=== PATIENT | male | born 1975 | race Two or more races ===

== ENCOUNTER 2020-05-14 09:18 | Outpatient (REF) | payer OTHER, SELFPAY ==
[2020-05-14 11:27] LABS: Hemoglobin 14.4 g/dl (14.0-18.0); INTERNATIONAL NORM RATIO 0.9 (0.9-1.1); Prothrombin Time 10.8 SEC (10.8-13.0)
[2020-05-14 11:29] LABS: Hematocrit 43.1 % (42-52); Mean Corpuscular HGB Conc 33.4 g/dl (31.0-36.0); Mean Corpuscular Hemoglobin 29.3 pg (27.0-33.0); Mean Corpuscular Volume 87.6 fL (80-98); Red Blood Count 4.92 X10*6/uL (4.60-5.80); White Blood Count 7.6 X10*3/uL (4.8-10.8)
[2020-05-14 11:43] LABS: PLT ABN DIST 1
[2020-05-14 12:02] LABS: Platelet Count 194 X10*3/uL (160-400)
[2020-05-14 12:48] LABS: Alanine Aminotransferase 105 U/L (0-40); Albumin Level 4.5 g/dL (3.5-5.0); Alkaline Phosphatase 85 U/L (39-117); Aspartate Amino Transferase 34 U/L (5-37); Bilirubin Direct 0.2 mg/dL (0.0-0.5); Bilirubin Total 0.5 mg/dL (0.0-1.0)
== END 2020-05-14 09:19 | disposition home or self-care (01) ==
LOC: HO.LAB 09:18
PROVIDERS: PCP Internal Medicine; Visit Provider Internal Medicine Gastroenterology
DX: R79.89 Other specified abnormal findings of blood chemistry (principal)
CPT/HCPCS: 36415; 80076; 85027; 85610

== ENCOUNTER → 2020-05-23 13:28 | Outpatient (BNVA) | payer OTHER, SELFPAY | PROVIDERS: PCP Internal Medicine; Visit Provider Nurse Practitioner Gerontology | DX: E11.65 Type 2 diabetes mellitus with hyperglycemia (principal); E78.1 Pure hyperglyceridemia; E55.9 Vitamin D deficiency, unspecified | CPT/HCPCS: 82947; 99212 ==

== ENCOUNTER 2020-06-03 08:37 | Outpatient (REF) | payer OTHER, SELFPAY ==
[2020-06-03 09:55] LABS: Cholesterol 334 mg/dL; HDL Cholesterol 30 mg/dL; Triglycerides 892 mg/dL
[2020-06-03 10:18] LABS: Vitamin D 25-OH Total 46.4 ng/mL (>30)
[2020-06-04 08:07] LABS: LDL Cholesterol Direct 78 mg/dL (<100)
== END 2020-06-03 08:38 | disposition home or self-care (01) ==
LOC: HO.LAB 08:37
PROVIDERS: PCP Internal Medicine; Visit Provider Nurse Practitioner Gerontology
DX: E11.65 Type 2 diabetes mellitus with hyperglycemia (principal); E55.9 Vitamin D deficiency, unspecified; E78.49 Other hyperlipidemia
CPT/HCPCS: 80061; 82306; 83721

== ENCOUNTER → 2020-06-20 10:59 | Outpatient (BNVA) | payer OTHER, SELFPAY | PROVIDERS: PCP Internal Medicine; Referring Provider Internal Medicine; Visit Provider Internal Medicine Cardiovascular Disease | DX: E78.49 Other hyperlipidemia (principal); E11.65 Type 2 diabetes mellitus with hyperglycemia; R07.9 Chest pain, unspecified | CPT/HCPCS: 93005; 99202 ==

== ENCOUNTER → 2020-06-26 07:51 | Outpatient (REF) | payer OTHER, SELFPAY ==
--- NOTE | 2020-06-26 07:54 | CA_ITS ---
Acquisition Time: 2020-06-26 08:10:33 Total Exercise Time: 00:06:53 Test Indications: Chest Pain Medications: SEE CHART Protocol: ROMAIN Max HR: 162 BPM 91% of Pred: 177 BPM Max BP: 154/082 mmHG Max Work Load: 8.3 METS Exercise stress test using Romain protocol, total of 6 min 53 sec. METS 8.3, MHR up to 162, MAPHR up to 91%. Tolerated well, denies any anginal sx. EKG with occ. PVC's no ischemic changes during exercise or in recovery. Normotensive response to exercise. Test reviewed with Merlin Billings Referred By: Nishant Garcia Overread By: Albert Small
== END ==
LOC: HO.CARD 07:51
PROVIDERS: PCP Internal Medicine; Visit Provider Internal Medicine Cardiovascular Disease
DX: E78.49 Other hyperlipidemia (principal); R07.9 Chest pain, unspecified
CPT/HCPCS: 93017

== ENCOUNTER 2020-07-08 08:31 | Outpatient (REF) | payer OTHER, SELFPAY ==
[2020-07-08 09:46] LABS: Alanine Aminotransferase 146 U/L (0-40); Albumin Level 4.4 g/dL (3.5-5.0); Alkaline Phosphatase 86 U/L (39-117); Anion Gap 11 (12-20); Aspartate Amino Transferase 52 U/L (5-37); Bilirubin Total 0.3 mg/dL (0.0-1.0); Blood Urea Nitrogen 11 mg/dL (9-16); Calcium 9.4 mg/dL (8.4-10.2); Carbon Dioxide 27 mmol/L (22-29); Chloride 103 mmol/L (96-108); Cholesterol 218 mg/dL; Estimated Glomerular Filt Rate > 60; Glucose Fasting 178 mg/dL (60-99); HDL Cholesterol 34 mg/dL; Potassium 4.3 mmol/l (3.3-5.1); Sodium 137 mmol/L (135-145); Triglycerides 518 mg/dL
[2020-07-09 07:27] LABS: LDL Cholesterol Direct 94 mg/dL (<100)
== END 2020-07-08 08:32 | disposition home or self-care (01) ==
LOC: HO.LAB 08:31
PROVIDERS: Absent Provider Nurse Practitioner Gerontology; PCP Internal Medicine; Visit Provider Internal Medicine Cardiovascular Disease
DX: E11.65 Type 2 diabetes mellitus with hyperglycemia (principal); E78.49 Other hyperlipidemia; E78.1 Pure hyperglyceridemia
CPT/HCPCS: 80053; 80061; 83721

== ENCOUNTER → 2020-07-25 13:27 | Outpatient (BNVA) | payer OTHER, SELFPAY | PROVIDERS: PCP Internal Medicine; Visit Provider Internal Medicine Gastroenterology | DX: Z76.89 Persons encountering health services in other specified circumstances (principal) ==

== ENCOUNTER → 2020-08-28 11:31 | Outpatient (BNVA) | payer OTHER, SELFPAY | PROVIDERS: PCP Internal Medicine; Referring Provider Internal Medicine; Visit Provider Nurse Practitioner Gerontology ==

== ENCOUNTER 2020-09-12 10:46 | Outpatient (REF) | payer OTHER, SELFPAY ==
[2020-09-12 12:31] LABS: Alanine Aminotransferase 59 U/L (0-40); Albumin Level 4.8 g/dL (3.5-5.0); Alkaline Phosphatase 69 U/L (39-117); Anion Gap 11 (12-20); Aspartate Amino Transferase 25 U/L (5-37); Bilirubin Total 0.4 mg/dL (0.0-1.0); Blood Urea Nitrogen 13 mg/dL (9-16); Calcium 9.9 mg/dL (8.4-10.2); Carbon Dioxide 28 mmol/L (22-29); Chloride 105 mmol/L (96-108); Estimated Glomerular Filt Rate > 60; Glucose Fasting 146 mg/dL (60-99); Potassium 4.4 mmol/L (3.3-5.1); Sodium 140 mmol/L (135-145); Total Protein 7.2 g/dL (6.5-8.0)
[2020-09-16 08:46] LABS: Levetiracetam Keppra 4.6 mcg/mL (12.0-46.0)
[2020-09-18 06:38] LABS: Vitamin D 25-OH, D2 <4 ng/mL; Vitamin D 25-OH, D3 56 ng/mL; Vitamin D 25-OH, Total 56 ng/mL (30-100)
== END 2020-09-12 10:47 | disposition home or self-care (01) ==
LOC: HO.LAB 10:46
PROVIDERS: PCP Internal Medicine; Visit Provider Internal Medicine
DX: E55.9 Vitamin D deficiency, unspecified (principal); R56.9 Unspecified convulsions; E11.65 Type 2 diabetes mellitus with hyperglycemia
CPT/HCPCS: 36415; 80053; 80177; 82306

== ENCOUNTER → 2020-11-25 13:43 | Outpatient (BNVA) | payer OTHER, SELFPAY | PROVIDERS: PCP Internal Medicine; Visit Provider Nurse Practitioner Gerontology | DX: E11.65 Type 2 diabetes mellitus with hyperglycemia (principal); E78.1 Pure hyperglyceridemia; E55.9 Vitamin D deficiency, unspecified | CPT/HCPCS: 82947 ==

== ENCOUNTER 2021-02-24 13:36 | Outpatient (REF) | payer OTHER, SELFPAY ==
[2021-02-24 14:32] LABS: Estimated Average Glucose 120 mg/dL; Hemoglobin A1C 151.2234 umol/L; Hemoglobin A1c % 5.8 %
[2021-02-24 14:48] LABS: Creatinine Urine 202.85 mg/dL; Microalbum/Creatinine Ratio Ur 7.8 ug/mg cr
[2021-02-24 14:50] LABS: Alanine Aminotransferase 44 U/L (0-40); Albumin Level 4.8 g/dL (3.5-5.0); Alkaline Phosphatase 81 U/L (39-117); Anion Gap 14 (12-20); Aspartate Amino Transferase 31 U/L (5-37); Bilirubin Total 0.6 mg/dL (0.0-1.0); Blood Urea Nitrogen 12 mg/dL (9-16); Calcium 9.7 mg/dL (8.4-10.2); Carbon Dioxide 28 mmol/L (22-29); Chloride 106 mmol/L (96-108); Cholesterol 219 mg/dL; Estimated Glomerular Filt Rate > 60; Glucose Fasting 100 mg/dL (60-99); HDL Cholesterol 32 mg/dL; Potassium 4.5 mmol/L (3.3-5.1); Sodium 143 mmol/L (135-145); Total Protein 7.3 g/dL (6.5-8.0); Triglycerides 479 mg/dL
[2021-02-25 16:51] LABS: LDL Cholesterol Direct 70 mg/dL (<100)
[2021-03-01 14:46] LABS: Vitamin D 25-OH, D2 <4 ng/mL; Vitamin D 25-OH, D3 57 ng/mL; Vitamin D 25-OH, Total 57 ng/mL (30-100)
== END 2021-02-24 13:37 | disposition home or self-care (01) ==
LOC: HO.LAB 13:36
PROVIDERS: Absent Provider Nurse Practitioner Gerontology; PCP Internal Medicine; Visit Provider Internal Medicine
DX: E11.65 Type 2 diabetes mellitus with hyperglycemia (principal); E78.5 Hyperlipidemia, unspecified; E55.9 Vitamin D deficiency, unspecified
CPT/HCPCS: 36415; 80053; 80061; 82043; 82306; 83036; 83721

== ENCOUNTER → 2021-04-03 10:39 | Outpatient (BNVA) | payer OTHER, SELFPAY | PROVIDERS: PCP Internal Medicine; Visit Provider Internal Medicine Gastroenterology ==

== ENCOUNTER 2021-06-18 08:12 | Outpatient (REF) | payer OTHER, SELFPAY ==
[2021-06-18 09:35] LABS: Alanine Aminotransferase 70 U/L (0-40); Albumin Level 4.2 g/dL (3.5-5.0); Alkaline Phosphatase 73 U/L (39-117); Anion Gap 16 (12-20); Aspartate Amino Transferase 29 U/L (5-37); Bilirubin Total 0.5 mg/dL (0.0-1.0); Blood Urea Nitrogen 13 mg/dL (9-16); Calcium 9.9 mg/dL (8.4-10.2); Carbon Dioxide 25 mmol/L (22-29); Chloride 104 mmol/L (96-108); Cholesterol 248 mg/dL; Estimated Glomerular Filt Rate > 60; Glucose Fasting 123 mg/dL (60-99); HDL Cholesterol 34 mg/dL; Potassium 4.4 mmol/L (3.3-5.1); Sodium 141 mmol/L (135-145); Total Protein 6.7 g/dL (6.5-8.0); Triglycerides 609 mg/dL
[2021-06-18 09:49] LABS: Creatinine Urine 168.79 mg/dL; Microalbum/Creatinine Ratio Ur 4.7 ug/mg cr
== END 2021-06-18 08:13 | disposition home or self-care (01) ==
LOC: HO.LAB 08:12
PROVIDERS: Nurse Practitioner Gerontology; PCP Internal Medicine; Visit Provider Internal Medicine
DX: K76.0 Fatty (change of) liver, not elsewhere classified (principal); E11.65 Type 2 diabetes mellitus with hyperglycemia
CPT/HCPCS: 36415; 80053; 80061; 82043

== ENCOUNTER → 2021-07-16 09:51 | Outpatient (BNVA) | payer OTHER, SELFPAY | PROVIDERS: PCP Internal Medicine; Visit Provider Nurse Practitioner Gerontology ==

== ENCOUNTER 2021-09-10 09:21 | Outpatient (REF) | payer OTHER, SELFPAY ==
[2021-09-10 10:55] LABS: Alanine Aminotransferase 29 U/L (0-40); Albumin Level 4.5 g/dL (3.5-5.0); Alkaline Phosphatase 72 U/L (39-117); Anion Gap 13 (12-20); Aspartate Amino Transferase 22 U/L (5-37); Bilirubin Total 0.6 mg/dL (0.0-1.0); Blood Urea Nitrogen 19 mg/dL (9-16); Carbon Dioxide 27 mmol/L (22-29); Chloride 107 mmol/L (96-108); Cholesterol 231 mg/dL; Estimated Glomerular Filt Rate > 60; Glucose Fasting 123 mg/dL (60-99); HDL Cholesterol 44 mg/dL; LDL Cholesterol Calculated 144 mg/dl; Potassium 4.3 mmol/L (3.3-5.1); Sodium 143 mmol/L (135-145); Total Protein 7.1 g/dL (6.5-8.0); Triglycerides 216 mg/dL
[2021-09-10 12:05] LABS: Creatinine Urine 160.25 mg/dL; Microalbum/Creatinine Ratio Ur 3.7 ug/mg cr
[2021-09-14 15:17] LABS: Vitamin D 25-OH, D2 <4 ng/mL; Vitamin D 25-OH, D3 40 ng/mL; Vitamin D 25-OH, Total 40 ng/mL (30-100)
== END 2021-09-10 09:22 | disposition home or self-care (01) ==
LOC: HO.LAB 09:21
PROVIDERS: PCP Internal Medicine; Visit Provider Internal Medicine
DX: E11.65 Type 2 diabetes mellitus with hyperglycemia (principal); R56.9 Unspecified convulsions; E78.5 Hyperlipidemia, unspecified; E55.9 Vitamin D deficiency, unspecified; Z79.899 Other long term (current) drug therapy
CPT/HCPCS: 36415; 80053; 80061; 80177; 82043; 82306

== ENCOUNTER → 2021-10-02 10:14 | Outpatient (BNVA) | payer OTHER, SELFPAY | PROVIDERS: PCP Internal Medicine; Referring Provider Internal Medicine; Visit Provider Internal Medicine Gastroenterology | DX: I10 Essential (primary) hypertension (principal); E78.1 Pure hyperglyceridemia; E78.5 Hyperlipidemia, unspecified; E78.49 Other hyperlipidemia; E11.65 Type 2 diabetes mellitus with hyperglycemia; R07.9 Chest pain, unspecified; K21.9 Gastro-esophageal reflux disease without esophagitis; K76.0 Fatty (change of) liver, not elsewhere classified; R79.89 Other specified abnormal findings of blood chemistry; Z79.899 Other long term (current) drug therapy | CPT/HCPCS: 93005; 99212 ==

== ENCOUNTER → 2021-10-20 10:02 | Outpatient (BNVA) | payer OTHER, SELFPAY | PROVIDERS: PCP Internal Medicine; Visit Provider Nurse Practitioner Gerontology | DX: E11.9 Type 2 diabetes mellitus without complications (principal); E78.1 Pure hyperglyceridemia; E55.9 Vitamin D deficiency, unspecified; Z79.84 Long term (current) use of oral hypoglycemic drugs; Z79.899 Other long term (current) drug therapy | CPT/HCPCS: 82947; 83036; 99212 ==

== ENCOUNTER 2022-01-12 07:54 | Outpatient (REF) | payer OTHER, SELFPAY | END 2022-01-12 07:55 | disposition home or self-care (01) | LOC: HO.LAB 07:54 | PROVIDERS: Visit Provider Internal Medicine | DX: Z13.89 Encounter for screening for other disorder (principal) ==

== ENCOUNTER 2022-05-05 07:57 | Outpatient (REF) | payer OTHER, SELFPAY ==
[2022-05-05 09:52] LABS: Alanine Aminotransferase 41 U/L (0-40); Albumin Level 4.4 g/dL (3.5-5.0); Alkaline Phosphatase 67 U/L (39-117); Anion Gap 13 (12-20); Aspartate Amino Transferase 23 U/L (5-37); Bilirubin Total 0.6 mg/dL (0.0-1.0); Blood Urea Nitrogen 10 mg/dL (9-16); Calcium 9.4 mg/dL (8.4-10.2); Carbon Dioxide 27 mmol/L (22-29); Chloride 105 mmol/L (96-108); Cholesterol 235 mg/dL; Estimated Glomerular Filt Rate > 60; Glucose Fasting 123 mg/dL (60-99); HDL Cholesterol 38 mg/dL; LDL Cholesterol Calculated 136 mg/dl; Potassium 4.2 mmol/L (3.3-5.1); Sodium 141 mmol/L (135-145); Total Protein 6.7 g/dL (6.5-8.0); Triglycerides 309 mg/dL
[2022-05-05 10:12] LABS: Vitamin D 25-OH Total 43.5 ng/mL (>30)
[2022-05-05 10:22] LABS: Creatinine Urine 179.77 mg/dL; Microalbum/Creatinine Ratio Ur 3.8 ug/mg cr
[2022-05-09 05:42] LABS: Levetiracetam Keppra 5.7 mcg/mL (6.0-46.0)
== END 2022-05-05 07:58 | disposition home or self-care (01) ==
LOC: HO.LAB 07:57
PROVIDERS: PCP Internal Medicine; Visit Provider Internal Medicine
DX: E11.9 Type 2 diabetes mellitus without complications (principal); E78.5 Hyperlipidemia, unspecified; E55.9 Vitamin D deficiency, unspecified; Z79.899 Other long term (current) drug therapy
CPT/HCPCS: 36415; 80053; 80061; 80177; 82043; 82306

== ENCOUNTER → 2022-05-06 12:19 | Outpatient (BNVA) | payer OTHER, SELFPAY | PROVIDERS: PCP Internal Medicine; Referring Provider Internal Medicine; Visit Provider Internal Medicine Cardiovascular Disease | DX: R07.9 Chest pain, unspecified (principal); E78.49 Other hyperlipidemia; E11.9 Type 2 diabetes mellitus without complications | CPT/HCPCS: 99212 ==

== ENCOUNTER → 2022-05-07 09:36 | Outpatient (BNVA) | payer OTHER, SELFPAY | PROVIDERS: PCP Internal Medicine; Referring Provider Internal Medicine; Visit Provider Internal Medicine Gastroenterology | DX: K76.0 Fatty (change of) liver, not elsewhere classified (principal); K21.9 Gastro-esophageal reflux disease without esophagitis; R79.89 Other specified abnormal findings of blood chemistry | CPT/HCPCS: 99212 ==

== ENCOUNTER 2022-05-28 14:19 | Emergency (ER) | payer OTHER, SELFPAY ==
[2022-05-28 14:28] VITALS: BP 151/99; PULSE 87; RESP 16; TEMP 36.7; O2SAT 98; BMI 27.4
--- NOTE | 2022-05-28 14:29 | ED_ITS ---
HPI - Eye Problem General Chief complaint: Eye Problems <STEF Samson Last Filed: 05/28/22 14:33> Stated complaint: eye swollen,puffy,red from drops at eye Dr <STEF Samson - Last Filed: 05/28/22 14:33> Time Seen by Provider: 05/28/22 16:57 <STEF Samson Last Filed: 05/28/22 14:33> Source: patient and family <STEF Loza Last Filed: 05/28/22 18:22> Mode of arrival: ambulatory <STEF Loza Last Filed: 05/28/22 18:22> Limitations: language barrier (Citizen [place]-speaking) <STEF Loza Last Filed: 05/28/22 18:22> History of Present Illness HPI Narrative: 47-year-old male who is Citizen Of [place]-speaking who has a past medical history of diabetes, hyperlipidemia, hypertension, nonalcoholic fatty liver, elevated LFTs, seizure disorder, major depressive disorder and GERD who is presenting to the ED with his at bedside with complaints of eye burning/itching/purulent drainage/redness that started 2 days ago after he had an eye exam by an software maintenance engineer. The states ?he had an eye exam and when the Walked in the room he did not even wash his hands and he did not have gloves he started to examine is I put him in a machine then told him your also at [facility] glasses go home?. Then the reports that within the next few hours he started developing eye redness and purulent discharge therefore they went back to see the software maintenance engineer today and the reports that the software maintenance engineer put a Q- tip in his I cleaned his purulent discharge she believes and then sent him home with 2 drops that are at the pharmacy. Although is concerned due to he has a history of diabetes and this infection is concerned how fast the infection is spreading. Patient denies fevers, recent injury, pain with movement of the eyes or any other symptoms complaints of concerns at this time. <STEF Loza ast Filed: 05/28/22 18:22> MD chief complaint: eye redness and other (With purulent discharge) <STEF Loza Last Filed: 05/28/22 18:22> Onset (ago): day(s) (2) <STEF Loza - Last Filed: 05/28/22 18:22> Onset description: gradual <STEF Loza - Last Filed: 05/28/22 18:22> Duration: constant and progressively worsening <STEF Loza - Last Filed: 05/28/22 18:22> Location: both eyes <STEF Loza - Last Filed: 05/28/22 18:22> Eye Symptoms: burning, redness, pain, itching and discharge <STEF Loza - Last Filed: 05/28/22 18:22> Mechanism: other (See above) <STEF Loza - Last Filed: 05/28/22 18:22> Severity: moderate <STEF Loza - Last Filed: 05/28/22 18:22> If Pain, Quality: burning <STEF Loza - Last Filed: 05/28/22 18:22> Context: recent eye procedure <STEF Loza - Last Filed: 05/28/22 18:22> Associated symptoms: none <STEF Loza - Last Filed: 05/28/22 18:22> Related Data Home medications: Home Medications Medication Instructions Recorded Confirmed alprazolam 2 mg tablet 2 mg PO BID PRN 05/23/20 05/07/22 aripiprazole 20 mg tablet 20 mg PO BEDTIME PRN 05/23/20 05/07/22 bupropion HCl 150 mg 24 hr tablet, 150 mg PO QAM 05/23/20 05/07/22 extended release hydroxyzine pamoate 25 mg capsule 25 mg PO TID 05/23/20 05/07/22 olanzapine 5 mg tablet 5 mg PO BEDTIME 05/23/20 05/07/22 levetiracetam 500 mg tablet 500 mg PO BID 08/28/20 05/07/22 Previous Rx's Medication Instructions Recorded lancets 28 gauge (FreeStyle 28 gauge topical BID for diabetes 01/01/21 Lancets) mellitus 30 days #100 caps cholestyramine (with sugar) 4 gram 4 g PO DAILY 30 days #378 grams 08/19/21 oral powder omeprazole 20 mg capsule,delayed 20 mg PO DAILY 90 days #90 caps 03/17/22 release omega-3 acid ethyl esters 1 gram 2 cap PO BID 60 days #240 caps 11/28/21 capsule (Lovaza) blood sugar diagnostic (FreeStyle 1 strip miscellaneous BID 30 days 12/24/21 Lite Strips) #50 strips cholecalciferol (vitamin D3) 25 25 mcg PO DAILY #30 caps 01/08/22 mcg (1,000 unit) capsule ezetimibe 10 mg tablet 10 mg PO DAILY 90 days #90 tabs 01/08/22 fenofibrate micronized 67 mg 67 mg PO DAILY #90 caps 01/08/22 capsule metformin 500 mg tablet 500 mg PO BID #180 tabs 02/11/22 evolocumab 140 mg/mL subcutaneous 140 mg subcut Q2W #2 mL 05/06/22 pen injector (Anny Longo) cephalexin 500 mg capsule 500 mg PO Q6H 10 days #40 caps 05/28/22 doxycycline monohydrate 100 mg 100 mg PO Q12H 10 days #20 tabs 05/28/22 tablet oxycodone 5 mg tablet 5 mg PO Q6H PRN pain #14 tabs 05/28/22 <STEF Samson - Last Filed: 05/28/22 14:33> Allergies/adverse reactions: Allergies Allergy/AdvReac Type Severity Reaction Status Date / Time Ymbvxje-GUA-TvY Reductase Allergy Unknown elevated Verified 05/28/22 14:27 Inhibitor liver [Isyuwgt-Lfe-Wyf Reductase enzymes Inhibitor] <STEF Samson - Last Filed: 05/28/22 14:33> Review of Systems Review of Systems: Constitutional : No fevers, no chills, No changes in activity, No lethargy, No recent prior head injury, No agitation, No increased fussiness ENT/Mouth : No Ear Pain, No Nasal discharge/drainage Eyes: + Vision changes/blurry/decreased vision, + Eye Pain, + Swelling, + Redness, No Foreign Body, No Photophobia, + discharge, + drainage, + itching, no eyelid edema, no contact lens uses, no recent welding, no bleeding Cardiovascular : No Chest Pain, No SOB Respiratory : No Cough Gastrointestinal : No Nausea, No Vomiting, No abdominal Pain Genitourinary : No Dysuria, No Urinary Frequency, No Urinary Incontinence, No Urgency, No Flank Pain Musculoskeletal : No joint pain, No neck stiffness, No back pain/injury Skin : No lacerations Neuro : No unsteady gait, No Paresthesias, No Loss of Consciousness, No altered mental status, No dizziness, No Headache Denies past medical history of HIV, recent trauma, coagulopathy, recent spinal/ epidural procedure, new medication, URI symptoms, close contacts with similar symptoms, tick bite, or known CO2 exposure. + recent eye procedure <STEF Loza - Last Filed: 05/28/22 18:22> Yes all other systems are reviewed and are negative <STEF Loza - Last Filed: 05/28/22 18:22> PMFSH Past Medical History Attestation statement: The following information was validated with the patient. <STEF Loza - Last Filed: 05/28/22 18:22> Source: old records reviewed, obtained from family and nursing notes reviewed <STEF Loza - Last Filed: 05/28/22 18:22> Medical History: Medical History Anxiety Diabetes mellitus type 2, controlled Dyslipidemia Essential hypertension Familial combined hyperlipidemia GERD (gastroesophageal reflux disease) Hypertriglyceridemia Hypovitaminosis D Low back pain Memory loss Seizure disorder Seizures <STEF Samson - Last Filed: 05/28/22 14:33> Surgical History: Surgical History H/O right wrist surgery Hx of arthroscopy Hx of hand surgery <STEF Samson - Last Filed: 05/28/22 14:33> Family History Family History: Family History Father CVD (cardiovascular disease) Hypertension Mother Diabetes Paternal Grandmother Cancer Paternal Uncle Throat cancer Family/Other FH: mental illness <STEF Samson - Last Filed: 05/28/22 14:33> Social History Social History: Social History Household Members: Spouse Household Members Other:: Spouse: Anyi Begum Housing: House Alcohol intake: current Alcohol intake frequency: holidays/special occasions only Alcohol type: beer Patient Tobacco Use Status: Current everyday Tobacco user Cigarettes Per Day: 10 e-Cigarette/Vaping Use: Never Used Second Hand Smoke Exposure: No Advance Directives: No Advance Directives Information Provided: No service: No Current occupational status: disabled <STEF Samson - Last Filed: 05/28/22 14:33> Physical Exam Vital Signs: Vital Signs: Last Vital Signs Temp 98.0 F 05/28/22 14:28 Pulse 87 05/28/22 14:28 Resp 16 05/28/22 14:28 BP 151/99 H 05/28/22 14:28 Pulse Ox 98 05/28/22 14:28 O2 Del Method 05/28/22 14:28 BMI result Body Mass Index 27.4 <STEF Samson - Last Filed: 05/28/22 14:33> Vital Signs: Last Vital Signs Temp 98.0 F 05/28/22 14:28 Pulse 87 05/28/22 14:28 Resp 16 05/28/22 14:28 BP 151/99 H 05/28/22 14:28 Pulse Ox 98 05/28/22 14:28 O2 Del Method 05/28/22 14:28 BMI result Body Mass Index 27.4 vital signs have been reviewed as normal and appeared to be correct. Blood pressure normal. Heart rate normal. Respiration rate normal. Temperature normal. Oxygen saturation normal. <STEF Loza - Last Filed: 05/28/22 18:22> Appearance: Alert. Oriented X3. No acute distress. Head: Normal external exam. Normocephalic. Atraumatic. Eyes: PERRLA. EOMI. Bilateral conjunctiva/sclera erythematous with moderate amounts of yellow purulent discharge consistent with bacterial conjunctivitis and chemosis. Cornea are normal. Funduscopic exam within normal limits. Right upper and lower eyelid erythematous and edematous consistent with periorbital cellulitis. Not consistent with orbital cellulitis patient has no pain or entrapment of extraocular movements. Left upper and lower eyelids mildly erythematous and edematous. No papilledema noted. Anterior chamber normal. No photophobia noted. Pressure to right eye is 24. Pressure to left eye is 25. ENT: EAC normal. TM's Normal. Pharynx normal. Uvula midline. Moist mucous membranes. Neck: Normal inspection. Neck supple. FROM. No adenopathy. Thyroid Normal. No meningeal signs. No neck mass noted. CVS: Normal heart rate and rhythm. Heart sound normal. No murmurs noted. Pulses normal throughout. Respiratory: No respiratory distress. Painless inspiration. Breath sounds normal. Back: Full range of motion noted. Skin: Skin warm and dry. Normal skin color. Normal skin turgor. No rashes/lesions/lacerations noted. Extremities: Extremities exhibit normal range of motion. Extremities nontender. Neuro: Oriented X 3. No motor deficit. No sensory deficit. Reflexes normal. <STEF Loza Last Filed: 05/28/22 18:22> Course Course Course Narrative: RME--47yo M c/o R eye pain, swelling and redness s/p going to optho yeste rday and them putting drops in. No trauma. Admits pain with EOMs. R eye with noted swelling and erythema No glasses or contacts Plan: VA, Tetricaine and Fluorescein strips ordered <STEF Samson Last Filed: 05/28/22 14:33> Reevaluation(s) Reevaluation #1: - on exam patient noted to have bilateral bacterial conjunctivitis/blepharitis and periorbital cellulitis. Not consistent with orbital cellulitis. Extraocular movements are intact and not entrapped. No foreign bodies are noted. Will DC home with erythromycin, ketorolac drops, doxy and Keflex and DC home with instructions to follow-up with PCP within 24-48 hours to make sure that his symptoms are improving not worsening and to return if any new or worsening symptoms. Patient with at bedside understand agree this plan. <STEF Loza - Last Filed: 05/28/22 18:22> Time: 18:15 <STEF Loza Last Filed: 05/28/22 18:22> MDM - Eye Problem Medical Records Attestation: I reviewed the patient's medical records. <STEF Loza Last Filed: 05/28/22 18:22> Discharge Plan Discharge Clinical Impression: Bacterial conjunctivitis, Periorbital cellulitis, Chemosis of conjunctiva of both eyes <STEF Samson Last Filed: 05/28/22 14:33> Patient Disposition: Home, Self-Care <STEF Samson - Last Filed: 05/28/22 14:33> Instructions: Periorbital Cellulitis in Adults (ED), Conjunctivitis (ED) <STEF Samson - Last Filed: 05/28/22 14:33> Prescriptions: New cephalexin 500 mg capsule 500 mg PO Q6H 10 Days Qty: 40 0RF doxycycline monohydrate 100 mg tablet 100 mg PO Q12H 10 Days Qty: 20 0RF oxycodone 5 mg tablet 5 mg PO Q6H PRN (Reason: pain) Qty: 14 0RF Rx Instructions: Partial Fill upon patient request. No Action lancets [FreeStyle Lancets] 28 gauge misc 28 gauge topical BID 30 Days Qty: 100 11RF cholestyramine (with sugar) 4 gram powder 4 g PO DAILY 30 Days Qty: 378 2RF Rx Instructions: administer w/meal; avoid other meds within 1hr before or 4-6hr after dose omega-3 acid ethyl esters [Lovaza] 1 gram capsule 2 cap PO BID 60 Days Qty: 240 3RF FreeStyle Lite Strips Strip 1 strip miscellaneous BID 30 Days Qty: 50 11RF cholecalciferol (vitamin D3) 25 mcg (1,000 unit) capsule 25 mcg PO DAILY Qty: 30 6RF ezetimibe 10 mg tablet 10 mg PO DAILY 90 Days Qty: 90 3RF fenofibrate micronized 67 mg capsule 67 mg PO DAILY Qty: 90 1RF metformin 500 mg tablet 500 mg PO BID Qty: 180 1RF omeprazole 20 mg capsule,delayed release(DR/EC) 20 mg PO DAILY 90 Days Qty: 90 1RF alprazolam 2 mg tablet 2 mg PO BID PRN bupropion HCl 150 mg tablet extended release 24 hr 150 mg PO QAM aripiprazole 20 mg tablet 20 mg PO BEDTIME PRN olanzapine 5 mg tablet 5 mg PO BEDTIME hydroxyzine pamoate 25 mg capsule 25 mg PO TID levetiracetam 500 mg tablet 500 mg PO BID Repatha SureClick 140 mg/mL pen injector 140 mg subcut Q2W Qty: 2 4RF <STEF Samson Last Filed: 05/28/22 14:33> Referrals: Cornelio Sauceda [Physician] - (call to Make a follow-up appointment this week) Jennifer Berger MD [Primary Care Provider] - 1 day (Patient needs re- evaluation tomorrow) <STEF Samson - Last Filed: 05/28/22 14:33> Print Language: Citizen Of [place] <STEF Samson - Last Filed: 05/28/22 14:33>
[2022-05-28] MEDS: Tetracaine HCl/PF 0.5% Oph Sol 4 ML DROPS 3 DROP EYE-RIGHT (18:27)
[2022-05-28] MEDS: Fluorescein Sodium STRIP 1 STRIP EYE-RIGHT (18:27)
[2022-05-28] MEDS: Erythromycin Base 0.5% Oph Oin 1 GM TUBE 1 CM EYE-BOTH (18:27)
[2022-05-28] MEDS: cephALEXin 500 MG CAPSULE PO (18:28)
[2022-05-28] MEDS: Ketorolac Tromethamine 0.5% Op 5 ML DROPS 1 DROP EYE-BOTH (18:28)
[2022-05-28] MEDS: oxyCODONE HCl Immed Release 5 MG TABLET PO (18:28)
== END 2022-05-28 18:45 | disposition home or self-care (01) ==
PROVIDERS: Emergency Provider Emergency Medicine; PCP Internal Medicine
DX: H10.9 Unspecified conjunctivitis (principal); L03.213 Periorbital cellulitis; H11.423 Conjunctival edema, bilateral; E11.9 Type 2 diabetes mellitus without complications; I10 Essential (primary) hypertension; Z79.84 Long term (current) use of oral hypoglycemic drugs; Z79.899 Other long term (current) drug therapy
CPT/HCPCS: 99283

== ENCOUNTER 2022-08-17 08:40 | Outpatient (REF) | payer OTHER, SELFPAY ==
[2022-08-17 08:54] LABS: MANUAL DIFF FLAG NO
[2022-08-17 09:54] LABS: Basophils Percent Auto 0.3 % (0-2); Eosinophils Absolute Auto 0.1 X10*3/uL (0.0-0.4); Eosinophils Percent Auto 1.2 % (0-4); Hemoglobin 14.6 g/dl (14.0-18.0); Imm Gran Abs Auto 0.02 X10*3/uL (0.00-0.03); Imm Gran Pct Auto 0.2 % (0.0-0.4); Lymphocytes Absolute Auto 3.6 X10*3/uL (1.2-4.9); Lymphocytes Percent Auto 32.5 % (20-40); Mean Corpuscular Hemoglobin 28.7 pg (27.0-33.0); Mean Corpuscular Volume 84.5 fL (80.0-98.0); Mean Platelet Volume 12.9 fL (9.4-12.4); Monocytes Absolute Auto 0.8 X10*3/uL (0.1-1.2); Monocytes Percent Auto 7.1 % (2-11); Neutrophils Absolute Auto 6.6 x10*3/uL (2.0-8.3); Neutrophils Percent Auto 58.7 % (45-73); Platelet Count 227 X10*3/uL (160-400); Red Blood Count 5.09 X10*6/uL (4.60-5.80); Red Cell Distribution Width 13.2 % (11.0-16.0); White Blood Count 11.2 X10*3/uL (4.8-10.8)
[2022-08-17 10:26] LABS: Alanine Aminotransferase 32 U/L (0-40); Albumin Level 4.4 g/dL (3.5-5.0); Alkaline Phosphatase 71 U/L (39-117); Anion Gap 11 (12-20); Aspartate Amino Transferase 21 U/L (5-37); Bilirubin Total 0.8 mg/dL (0.0-1.0); Blood Urea Nitrogen 14 mg/dL (9-16); Calcium 10.4 mg/dL (8.4-10.2); Carbon Dioxide 26 mmol/L (22-29); Chloride 109 mmol/L (96-108); Cholesterol 195 mg/dL; Estimated Glomerular Filt Rate > 60; Glucose Fasting 104 mg/dL (60-99); HDL Cholesterol 33 mg/dL; LDL Cholesterol Calculated 110 mg/dl; Potassium 3.9 mmol/L (3.3-5.1); Sodium 142 mmol/L (135-145); Total Protein 6.7 g/dL (6.5-8.0); Triglycerides 264 mg/dL
[2022-08-17 10:42] LABS: Vitamin D 25-OH Total 38.7 ng/mL (>30)
[2022-08-20 19:38] LABS: Levetiracetam Keppra 7.6 mcg/mL (6.0-46.0)
== END 2022-08-17 08:41 | disposition home or self-care (01) ==
LOC: HO.LAB 08:40
PROVIDERS: PCP Internal Medicine; Visit Provider Internal Medicine
DX: E55.9 Vitamin D deficiency, unspecified (principal); R56.9 Unspecified convulsions; E78.5 Hyperlipidemia, unspecified; D64.9 Anemia, unspecified; E11.9 Type 2 diabetes mellitus without complications
CPT/HCPCS: 36415; 80053; 80061; 80177; 82306; 85025

== ENCOUNTER 2022-08-26 09:37 | Outpatient (REF) | payer OTHER, SELFPAY ==
[2022-08-26 11:34] LABS: Anion Gap 17 (12-20); Blood Urea Nitrogen 11 mg/dL (9-16); Calcium 9.8 mg/dL (8.4-10.2); Carbon Dioxide 23 mmol/L (22-29); Chloride 107 mmol/L (96-108); Estimated Glomerular Filt Rate > 60; Glucose Random 107 mg/dL (60-115); Potassium 4.4 mmol/L (3.3-5.1); Sodium 143 mmol/L (135-145)
== END 2022-08-26 09:38 | disposition home or self-care (01) ==
LOC: HO.LAB 09:37
PROVIDERS: PCP Internal Medicine; Visit Provider Internal Medicine Cardiovascular Disease
DX: E78.5 Hyperlipidemia, unspecified (principal); R07.9 Chest pain, unspecified
CPT/HCPCS: 36415; 80048

== ENCOUNTER 2022-09-05 06:15 | Emergency (ER) | payer OTHER, SELFPAY ==
--- NOTE | ~2022-09-05 | XR_ITS ---
EXAMINATION: XR RIBS, RIGHT CLINICAL INFORMATION: Right-sided pain COMPARISON: X-ray chest 08/20/2017 TECHNIQUE: 4 views of the right ribs were obtained. FINDINGS: Lungs are clear. No consolidation, pneumothorax, or pleural effusion. The cardiomediastinal silhouette and pulmonary vasculature are normal. Slight elevation right hemidiaphragm, low lung volumes. There is a marker positioned along the right inferior rib cage. No acute displaced rib fractures are identified. XR/XR ribs RT min 3V w CXR1V IMPRESSION: No evidence of acute pulmonary process. No acute displaced rib fractures are identified.
--- NOTE | ~2022-09-05 | XR_ITS ---
EXAMINATION: XR LUMBOSACRAL SPINE CLINICAL INFORMATION: Trauma to lower back COMPARISON: X-ray 01/13/2016 TECHNIQUE: Three views of the lumbosacral spine. FINDINGS: Vertebral body sagittal alignment is maintained. Mild anterior vertebral body height loss of T12 and L1, unchanged from previous. The vertebral body heights are otherwise maintained. No evidence of acute fracture/compression deformity. Mild disc height loss at T12-L1. Endplate spurring at multiple levels in the lumbar spine. Multilevel facet degeneration. 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 There is a 3 mm rounded density projected over the posterior/medial soft tissues, perhaps foreign body. XR/XR lumbar spine 2-3V IMPRESSION: 1. Mild T12 and L1 vertebral body height loss, unchanged from previous. 2. No evidence of acute vertebral compression fracture. 3. Mild lumbar spondylosis. 4. 3 mm density in the posterior medial soft tissues of back, perhaps metallic foreign body.
[2022-09-05 06:37] VITALS: BP 151/109; PULSE 74; RESP 16; TEMP 36.6; O2SAT 98; BMI 20.7
[2022-09-05 07:39] VITALS: BP 133/94; PULSE 80; RESP 17; TEMP 36.8; O2SAT 96
--- NOTE | 2022-09-05 07:52 | ED.FALL ---
HPI - Fall General Chief Complaint: Fall Stated Complaint: fall 4 days ago, back pain Time Seen by Provider: 09/05/22 07:55 Source: patient Mode of arrival: ambulatory Limitations: no limitations History of Present Illness HPI Narrative: This is a 47 years old male presented to the emergency department ambulatory with a chief complaint of lower back pain, he states that he fell 4 days ago while feeding the dog since then has been having lower back pain. Patient has history of schizophrenia, seizure disorder, diabetes. MD complaint: fall Onset (ago): day(s) (4) Fall from: standing Fall witnessed: yes, by family Place fall occurred: home Loss of consciousness: none Symptoms prior to fall: none Context: tripped/slipped Related Data Home Medications Medication Instructions Recorded Confirmed alprazolam 2 mg tablet 2 mg PO BID PRN 05/23/20 08/10/22 aripiprazole 20 mg tablet 20 mg PO BEDTIME PRN 05/23/20 08/10/22 bupropion HCl 150 mg 24 hr tablet, 150 mg PO QAM 05/23/20 08/10/22 extended release hydroxyzine pamoate 25 mg capsule 25 mg PO TID 05/23/20 08/10/22 olanzapine 5 mg tablet 5 mg PO BEDTIME 05/23/20 08/10/22 levetiracetam 500 mg tablet 500 mg PO BID 08/28/20 08/10/22 Previous Rx's Medication Instructions Recorded omega-3 acid ethyl esters 1 gram 2 cap PO BID 60 days #240 caps 11/28/21 capsule (Lovaza) blood sugar diagnostic (FreeStyle 1 strip miscellaneous BID 30 days 12/24/21 Lite Strips) #50 strips cholecalciferol (vitamin D3) 25 25 mcg PO DAILY #30 caps 01/08/22 mcg (1,000 unit) capsule ezetimibe 10 mg tablet 10 mg PO DAILY 90 days #90 tabs 01/08/22 evolocumab 140 mg/mL subcutaneous 140 mg subcut Q2W #2 mL 05/06/22 pen injector (Anny Longo) oxycodone 5 mg tablet 5 mg PO Q6H PRN pain #14 tabs 05/28/22 omeprazole 20 mg capsule,delayed 20 mg PO DAILY 90 days #90 caps 06/13/22 release cholestyramine (with sugar) 4 gram 4 g PO DAILY 30 days #378 grams 06/14/22 oral powder fenofibrate micronized 67 mg 67 mg PO DAILY #90 caps 07/13/22 capsule lancets 28 gauge (FreeStyle 28 gauge topical BID for diabetes 08/09/22 Lancets) mellitus 30 days #100 caps metformin 500 mg tablet 500 mg PO BID #180 tabs 08/27/22 oxycodone 5 mg capsule 5 mg PO Q8H PRN pain #12 caps 09/05/22 Allergies Allergy/AdvReac Type Severity Reaction Status Date / Time Byhqwtg-LTU-MbP Reductase Allergy Unknown elevated Verified 08/10/22 14:49 Inhibitor liver [Ezxlgpi-Quh-Anx Reductase enzymes Inhibitor] Review of Systems Constitutional: Constitutional: Reports no additional constitutional complaints Cardiovascular: Cardiovascular: Reports no additional cardiovascular complaints Musculoskeletal: Musculoskeletal: Reports as per [facility] Past Medical History Medical History Anxiety Diabetes mellitus type 2, controlled Dyslipidemia Essential hypertension Familial combined hyperlipidemia GERD (gastroesophageal reflux disease) Hypertriglyceridemia Hypovitaminosis D Low back pain Memory loss Seizure disorder Seizures Surgical History H/O right wrist surgery Hx of arthroscopy Hx of hand surgery Family History Family History Father CVD (cardiovascular disease) Hypertension Mother Diabetes Paternal Grandmother Cancer Paternal Uncle Throat cancer Family/Other FH: mental illness Social History Social History Household Members: Spouse Household Members Other:: Spouse: Anyi Begum Housing: House Alcohol intake: current Alcohol intake frequency: holidays/special occasions only Alcohol type: beer Patient Tobacco Use Status: Current everyday Tobacco user Cigarettes Per Day: 10 Smoked in Last 30 Days: Yes e-Cigarette/Vaping Use: Never Used Second Hand Smoke Exposure: No Advance Directives: No Advance Directives Information Provided: No service: No Current occupational status: disabled Cognitive needs: No Hearing needs: No Vision needs: No Physical Exam Vital Signs: Vital Signs: Last Vital Signs Temp 98.3 F 09/05/22 07:39 Pulse 80 09/05/22 07:39 Resp 17 02/18/23 07:39 BP 133/94 H 09/05/22 07:39 Pulse Ox 96 09/05/22 07:39 O2 Del Method 09/05/22 07:39 BMI result Body Mass Index 20.7 Const: General: cooperative Nutritional Appearance: average body habitus and well nourished Orientation/consciousness: patient oriented x3 Limitations: no limitations HEENT: Head: Yes normal to inspection General nose exam: Normal external nose present Face and sinus: Yes normal facial exam Neck: Neck: Yes normal visual inspection and Yes full ROM Chest: Chest palpation & inspection: normal inspection of the chest Resp: Effort & Inspection: normal respiratory effort Auscultation: clear to auscultation bilaterally Cardio: Jugular venous distension: no JVD Rate: regular rate Rhythm: regular rhythm GI: Inspection: Yes normal to inspection Palpation (GI): Soft to palpation, not firm, nontender and no guarding Skin: General skin exam: no rashes or lesions noted and elasticity normal Lesions: no lesions Rashes: no rashes Neuro: General: patient oriented x3 Cranial nerves: Yes CN's II-XII intact bilaterally Discharge Plan Discharge Clinical Impression: Back pain, Back contusion Patient Disposition: Home, Self-Care Instructions: Acute Low Back Pain (ED) Prescriptions: New oxycodone 5 mg capsule 5 mg PO Q8H PRN (Reason: pain) Qty: 12 0RF Rx Instructions: Partial Fill upon patient request. No Action omega-3 acid ethyl esters [Lovaza] 1 gram capsule 2 cap PO BID 60 Days Qty: 240 3RF FreeStyle Lite Strips Strip 1 strip miscellaneous BID 30 Days Qty: 50 11RF cholecalciferol (vitamin D3) 25 mcg (1,000 unit) capsule 25 mcg PO DAILY Qty: 30 6RF ezetimibe 10 mg tablet 10 mg PO DAILY 90 Days Qty: 90 3RF omeprazole 20 mg capsule,delayed release(DR/EC) 20 mg PO DAILY 90 Days Qty: 90 1RF cholestyramine (with sugar) 4 gram powder 4 g PO DAILY 30 Days Qty: 378 2RF Rx Instructions: administer w/meal; avoid other meds within 1hr before or 4-6hr after dose fenofibrate micronized 67 mg capsule 67 mg PO DAILY Qty: 90 1RF lancets [FreeStyle Lancets] 28 gauge misc 28 gauge topical BID 30 Days Qty: 100 11RF metformin 500 mg tablet 500 mg PO BID Qty: 180 1RF oxycodone 5 mg tablet 5 mg PO Q6H PRN (Reason: pain) Qty: 14 0RF Rx Instructions: Partial Fill upon patient request. alprazolam 2 mg tablet 2 mg PO BID PRN bupropion HCl 150 mg tablet extended release 24 hr 150 mg PO QAM aripiprazole 20 mg tablet 20 mg PO BEDTIME PRN olanzapine 5 mg tablet 5 mg PO BEDTIME hydroxyzine pamoate 25 mg capsule 25 mg PO TID levetiracetam 500 mg tablet 500 mg PO BID Repatha SureClick 140 mg/mL pen injector 140 mg subcut Q2W Qty: 2 4RF Referrals: Jennifer Berger MD [Primary Care Provider] - 09/08/22 Interventions: ED Discharge Assessment Last Done: 09/05/22 08:59 Discharge Date/Time: 09/05/22 08:59
== END 2022-09-05 08:59 | disposition home or self-care (01) ==
PROVIDERS: Emergency Provider Emergency Medicine; PCP Internal Medicine
DX: S30.0XXA Contusion of lower back and pelvis, initial encounter (principal); W01.0XXA Fall on same level from slipping, tripping and stumbling without subsequent striking against object, initial encounter; Y93.G1 Activity, food preparation and clean up; Y92.030 Kitchen in apartment as the place of occurrence of the external cause; Y99.9 Unspecified external cause status
CPT/HCPCS: 71101; 72100; 99283; 99284

== ENCOUNTER 2023-02-15 06:41 | Outpatient (REF) | payer OTHER, SELFPAY ==
[2023-02-15 07:54] LABS: Alanine Aminotransferase 29 U/L (0-40); Albumin Level 4.5 g/dL (3.5-5.0); Alkaline Phosphatase 64 U/L (39-117); Anion Gap 16 (12-20); Aspartate Amino Transferase 22 U/L (5-37); Bilirubin Total 0.6 mg/dL (0.0-1.0); Blood Urea Nitrogen 14 mg/dL (9-16); Calcium 9.3 mg/dL (8.4-10.2); Carbon Dioxide 21 mmol/L (22-29); Chloride 107 mmol/L (96-108); Cholesterol 210 mg/dL; Estimated Glomerular Filt Rate > 60; Glucose Fasting 123 mg/dL (60-99); HDL Cholesterol 34 mg/dL; LDL Cholesterol Calculated 128 mg/dl; Potassium 3.8 mmol/L (3.3-5.1); Sodium 140 mmol/L (135-145); Total Protein 7.2 g/dL (6.5-8.0); Triglycerides 243 mg/dL
[2023-02-15 08:10] LABS: Vitamin D 25-OH Total 58.7 ng/mL (>30)
[2023-02-15 08:18] LABS: Vitamin B12 415 pg/mL (200-900)
[2023-02-15 08:45] LABS: Microalbum/Creatinine Ratio Ur 6.4 ug/mg cr
== END 2023-02-15 06:42 | disposition home or self-care (01) ==
LOC: HO.LAB 06:41
PROVIDERS: PCP Internal Medicine; Visit Provider Internal Medicine
DX: E55.9 Vitamin D deficiency, unspecified (principal); E53.8 Deficiency of other specified B group vitamins; E78.5 Hyperlipidemia, unspecified; E11.9 Type 2 diabetes mellitus without complications; R56.9 Unspecified convulsions
CPT/HCPCS: 36415; 80053; 80061; 82043; 82306; 82607; 82746

== ENCOUNTER 2023-03-04 11:44 | Outpatient (AMB) | payer OTHER, SELFPAY ==
--- NOTE | 2023-03-04 11:55 | MHC.OFFVIS ---
Intake Vital Signs 03/04/23 11:57 Height 5 ft 9 in Weight 189 lb BMI 27.9 Blood Pressure Location Lt brachial Position Sitting Intake Visit Reasons: 6 month follow up Intake Note: Patient follow up for elevated LFTs Patient denies any GI issues. 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 Accompanied by: Spouse Allergies Yahqvie-QNK-AvG Reductase Inhibitor [Pgbbolh-Lbg-Vzd Reductase Inhibitor] Allergy (Unknown, Verified 03/04/23 12:03) elevated liver enzymes Medication List - Last Reconciled 03/04/23 by Preet Payne MD alprazolam 2 mg PO BID PRN aripiprazole 20 mg PO BEDTIME PRN blood sugar diagnostic (FreeStyle Lite Strips) 1 strip miscellaneous BID 30 days bupropion HCl 150 mg PO QAM cholecalciferol (vitamin D3) 25 mcg PO DAILY cholestyramine (with sugar) 4 gram 4 grams PO DAILY 30 days evolocumab (Repatha SureClick) 140 mg subcut Q2W ezetimibe 10 mg PO DAILY 90 days fenofibrate micronized 67 mg PO DAILY lancets (FreeStyle Lancets) 28 gauge topical BID 30 days levetiracetam 500 mg PO BID lidocaine 5% 1 appl topical BEDTIME PRN 30 days metformin 500 mg PO BID methocarbamol 500 mg PO TID 30 days olanzapine 5 mg PO BEDTIME omega-3 acid ethyl esters (Lovaza) 2 caps PO BID 60 days omeprazole 20 mg PO DAILY 90 days HPI 6 month follow up HPI Details GI clinic visit for this 48-year-old Salvadorean speaking male for FU of elevated LFts due to fatty liver ?CHRONIC ILLNESSES: htn, bipolar disorder, type 2 DM and obesity with elevated LFTs ?LABS IN [facility]:?01/05/20 TB 0.5, AST 33 (decreased from 60 in 06/06), ALT 96 (decreased from 135 in 06/06) AP 77. ? 04/2016 hepatitis-B and C serologies were negative, ceruloplasmin, JENNIFER and rheumatoid factor were normal. ? Normal iron studies with ferritin 204 ?IMAGING STUDIES: US 05/26/18 showed: IMPRESSION: ? Echogenic liver parenchyma, more commonly seen with hepatic steatosis. No focal lesions. ?TODAY'S VISIT: ? ? ? Pt is accompanied by his who interpreted for the patient. ?? ? He is doing well Takes a pill for heartburn Denies recent change in BMs. Family hx positive for stomach in his paternal GM (in her 80's) and paternal uncle in his 40's. Reviewed scheduling an appt for an EGD and colonoscopy with the patient He agreed to having an EGD and refused a colonoscopy. ??PAST VISIT ? Lab results were reviewed with the patient - LFTs improved with normal AST and ALT. ? Denies ETOH use. ? Eating baked food for the past 7-8 months and avoids fried food. ? Weighs 189 lbs. (weighed 204 lbs in 04/07 & 207 lbs in 08/2019) ? Lost 5 lbs over the past 2 months. ? Pt denies abdominal pain, heartburn or dysphagia. ? Denies past history of Jaundice , liver problems or known family history of liver disease. ? Appetite have been stable and denies black stool or rectal??bleeding PFSH Medical History Anxiety Diabetes mellitus type 2, controlled Dyslipidemia Essential hypertension Familial combined hyperlipidemia GERD (gastroesophageal reflux disease) Hypertriglyceridemia Hypovitaminosis D Low back pain Memory loss Seizure disorder Seizures Surgical History H/O right wrist surgery Hx of arthroscopy Hx of hand surgery Family History Father CVD (cardiovascular disease) Hypertension Mother Diabetes Paternal Grandmother Cancer Paternal Uncle Throat cancer Family/Other FH: mental illness Social History Household Members: Spouse Household Members Other:: Spouse: Anyi Begum Housing: House Alcohol intake: current Alcohol intake frequency: holidays/special occasions only Alcohol type: beer Patient Tobacco Use Status: Current everyday Tobacco user Tobacco use type: Cigarette Cigarettes Per Day: 10 e-Cigarette/Vaping Use: Never Used Second Hand Smoke Exposure: No service: No Current occupational status: disabled Cognitive needs: No Hearing needs: No Vision needs: No Review of Systems Const All systems reviewed & are unremarkable except as noted in HPI and below Physical Exam Vital Signs: BMI result Body Mass Index 27.9 Const General: healthy appearing and no acute distress Nutritional Appearance: overweight Orientation/consciousness: patient oriented x3 Limitations: language barrier HEENT Head: Yes normal to inspection Ears: hearing grossly normal bilaterally Eyes Sclerae: sclerae normal Pupils: Equal, round and reactive pupils present Neck Neck: Yes normal visual inspection Chest Chest palpation & inspection: normal inspection of the chest Resp Effort & Inspection: normal respiratory effort Auscultation: clear to auscultation bilaterally Cardio Palpation: normal PMI Rate: regular rate Rhythm: regular rhythm Heart sounds: S1 normal heart sound present, S2 normal heart sound present and no murmurs GI Palpation (GI): Soft to palpation, nontender and No hepatosplenomegaly present Auscultation: normal bowel sounds Rectal Exam - Male: Yes deferred Skin General skin exam: no rashes or lesions noted Neuro General: patient oriented x3, gait normal and moves all extremities Cranial nerves: Yes Equal, round and reactive pupils present Psych Appearance: grossly normal Mental Status: mental status grossly normal Assessment & Plan Assessment & Plan (1) GERD (gastroesophageal reflux disease): Code(s): K21.9 - Gastro-esophageal reflux disease without esophagitis Qualifiers: Esophagitis presence: esophagitis presence not specified Qualified Code(s): K21.9 - Gastro-esophageal reflux disease without esophagitis (2) NAFL (nonalcoholic fatty liver): Code(s): K76.0 - Fatty (change of) liver, not elsewhere classified (3) Elevated LFTs: Code(s): R79.89 - Other specified abnormal findings of blood chemistry Plan 48 YM with htn, bipolar disorder, type 2 DM and obesity with elevated LFTs most likely due to fatty liver/steatohepatitis related to obesity and DM. Hepatitis A, B and C serologies were negative in the past. Lab evaluation for autoimmune hepatitis, hemochromatosis and Ze's disease was negative. His weight has been stable. Lab evaluation and 03/2020 showed some worsening of AST and ALT. FU lab evaluation showed normal LFts likely due to wt loss. Patient was advised to continue Omeprazole and try to loose another 5 to 10 lbs. 03/04/23 Pt advised to schedule an EGD (FU of GERD and family hx of gastric cancer) and a colonoscopy (colon cancer screening) Pt agreed to having an EGD and reluctant to have a colonoscopy (willing to think about it and schedule on his next visit) Fu in 6 months? Quality Reporting (2019) Adult ([facility] 138/09/09/68) Smoking risk assessment performed?: Yes Patient Tobacco Use Status: Current everyday Tobacco user Coding Level of Care Code Est Pt Level 4 (04722) Diagnoses GERD (gastroesophageal reflux disease) K21.9 Esophagitis presence: esophagitis presence not specified NAFL (nonalcoholic fatty liver) K76.0 Elevated LFTs R79.89 Time Spent (min) 24
[2023-03-04 11:57] VITALS: BMI 27.9
== END 2023-03-04 12:34 | disposition home or self-care (01) ==
PROVIDERS: PCP Internal Medicine; Visit Provider Internal Medicine Gastroenterology
DX: K21.9 Gastro-esophageal reflux disease without esophagitis (principal); K76.0 Fatty (change of) liver, not elsewhere classified; R79.89 Other specified abnormal findings of blood chemistry
CPT/HCPCS: 99214

== ENCOUNTER → 2023-03-04 11:44 | Outpatient (BNVA) | payer OTHER, SELFPAY | PROVIDERS: PCP Internal Medicine; Visit Provider Internal Medicine Gastroenterology | DX: R79.89 Other specified abnormal findings of blood chemistry (principal); K76.0 Fatty (change of) liver, not elsewhere classified; K21.9 Gastro-esophageal reflux disease without esophagitis | CPT/HCPCS: 99212 ==

== ENCOUNTER 2023-03-23 16:10 | Outpatient (AMB) | payer OTHER, SELFPAY ==
[2023-03-23 16:14] VITALS: BP 102/78; PULSE 82; RESP 16; O2SAT 98; BMI 27.5
--- NOTE | 2023-03-23 16:14 | A.OFFPC_ITS ---
Vital Signs 03/23/23 16:14 Height 5 ft 9 in Weight 186 lb 6 oz BMI 27.5 BP 102/78 Blood Pressure Location Lt brachial Position Sitting Respiration 16 Pulse 82 Pulse Source Pulse Oximeter Pulse Oximetry (%) 98 Intake Visit Reasons: dm Intake Note: Patient is here to follow up on DMII. 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 Accompanied by: Spouse Allergies Vdnhbuy-TXI-CwE Reductase Inhibitor [Mdatkja-Ztv-Jij Reductase Inhibitor] Allergy (Unknown, Verified 03/23/23 16:29) elevated liver enzymes Medication List - Last Reconciled 03/23/23 by Jennifer Teran MD alprazolam 2 mg PO BID PRN aripiprazole 20 mg PO BEDTIME PRN blood sugar diagnostic (FreeStyle Lite Strips) 1 strip miscellaneous BID 30 days bupropion HCl 150 mg PO QAM cholecalciferol (vitamin D3) 25 mcg PO DAILY cholestyramine (with sugar) 4 gram 4 grams PO DAILY 30 days evolocumab (Repatha SureClick) 140 mg subcut Q2W ezetimibe 10 mg PO DAILY 90 days fenofibrate micronized 67 mg PO DAILY lancets (FreeStyle Lancets) 28 gauge topical BID 30 days levetiracetam 500 mg PO BID lidocaine 5% 1 appl topical BEDTIME PRN 30 days metformin 500 mg PO BID methocarbamol 500 mg PO TID 30 days olanzapine 5 mg PO BEDTIME omega-3 acid ethyl esters (Lovaza) 2 caps PO BID 60 days omeprazole 20 mg PO DAILY 90 days Tobacco use date assessed: 08/04/22 Dental Screening Dental Screen Date: 03/23/23 Did you have a dental visit in the last 12 months?: No Did you have a dental problem in the last 6 months where you did not have access to dental care?: No Was dental information given to patient?: Yes HPI HPI Comments History of Present Illness Details This is a 48-year-old male with diabetes mellitus type 2, familial combined hyperlipidemia, seizures and mild major depression that comes today ac companied by girlfriend for follow-up on his conditions. A1c within goal. Blood pressure stable. LDL close to goal. Has not had a seizure in over 3 months. Depression is follow by Psychiatry and has been well controlled with medications. Denies any chest pain or shortness of breath. [facility] Medical History Anxiety Diabetes mellitus type 2, controlled Dyslipidemia Essential hypertension Familial combined hyperlipidemia GERD (gastroesophageal reflux disease) Hypertriglyceridemia Hypovitaminosis D Low back pain Memory loss Seizure disorder Seizures Surgical History H/O right wrist surgery Hx of arthroscopy Hx of hand surgery Family History Father CVD (cardiovascular disease) Hypertension Mother Diabetes Paternal Grandmother Cancer Paternal Uncle Throat cancer Family/Other FH: mental illness Social History Household Members: Spouse Household Members Other:: Spouse: Anyi Begum Housing: House Alcohol intake: current Alcohol intake frequency: holidays/special occasions only Alcohol type: beer Patient Tobacco Use Status: Current everyday Tobacco user Tobacco use type: Cigarette Cigarettes Per Day: 10 e-Cigarette/Vaping Use: Never Used Second Hand Smoke Exposure: No service: No Current occupational status: disabled Cognitive needs: No Hearing needs: No Vision needs: No Questionnaire Thrive Questionnaire Date Thrive assessed: 08/04/22 LOYD-7 AMB Questionnaire LOYD-7 Date LOYD - 7 assessed: 08/04/22 Source: Developed by Drs. Jacob Shaw, Jenn Walton, Mohsen Eldridge and colleagues, with an educational ila from [employer]. Review of Systems Const All systems reviewed & are unremarkable except as noted in HPI and below Eyes Reports no additional complaints, Denies change in vision and Denies other visual disturbances Card Denies chest pain at rest, Denies chest pain with activity, Denies edema, Denies irregular heart rhythm, Denies claudication, Denies dyspnea, Denies dyspnea on exertion, Denies orthopnea, Denies paroxysmal nocturnal dyspnea and Denies slow heart rate Resp Denies cough, Denies dyspnea and Denies dyspnea on exertion GI Denies abdominal pain, Denies change in bowel habits, Denies excessive flatus, Denies nausea and Denies vomiting Denies urinary hesitancy, Denies urinary incontinence and Denies urinary urgency Musc Denies abnormal gait, Denies atrophy, Denies deformity and Denies limited range of motion Skin/Breast Denies bleeding lesions, Denies changing lesions and Denies rash Neuro Denies abnormal gait and Denies lack of coordination Physical exam (Primary Care) Vital Signs: Last Vital Signs Pulse 82 03/23/23 16:14 Resp 16 03/23/23 16:14 BP 102/78 03/23/23 16:14 Pulse Ox 98 03/23/23 16:14 BMI result Body Mass Index 27.5 Tobacco/Smoking Status: Tobacco use Status Tobacco use date assessed 08/04/22 03/23/23 16:17 Patient Tobacco Use Status Current everyday Tobacco 03/23/23 16:17 Tobacco use type Cigarette 03/23/23 16:17 e-Cigarette/Vaping Use Never Used 03/23/23 16:17 Thrive Assessment: Date of Thrive Assessment Date Thrive assessed 08/04/22 03/23/23 16:17 Eyes General: appearance normal, both eyes and all related structures Eyelids: Yes eyelids normal Conjunctivae: conjunctivae normal Neck Neck: Yes normal visual inspection and Yes supple Resp Effort & Inspection: normal respiratory effort Auscultation: clear to auscultation bilaterally Cardio Jugular venous distension: no JVD Rate: regular rate Rhythm: regular rhythm Heart sounds: S1 normal heart sound present and S2 normal heart sound present Extrem General: Yes full ROM Assessment and Plan Assessment & Plan (1) Mild recurrent major depression: Code(s): F33.0 - Major depressive disorder, recurrent, mild Plan: Continue Abilify. Follow-up with psychiatry. (2) Diabetes mellitus type 2, controlled: Code(s): E11.9 - Type 2 diabetes mellitus without complications Plan: Continue metformin. A1c goal is equal or less than 7%. (3) Seizures: Code(s): R56.9 - Unspecified convulsions Plan: Continue Keppra. (4) Familial combined hyperlipidemia: Code(s): E78.49 - Other hyperlipidemia Plan: Continue Zetia. LDL goal should be less than 70. Orders: Orders Apolipoprotein B 4 Months E78.49 - Other hyperlipidemia Comprehensive [place]. Panel Fast 4 Months E78.49 - Other hyperlipidemia Lipoprotein A 4 Months E78.49 - Other hyperlipidemia Lipid Panel 4 Months E78.5 - Hyperlipidemia, unspecified Lipoprotein Asso Phospholip A2 4 Months E78.49 - Other hyperlipidemia Vitamin D 25-OH Total 4 Months E55.9 - Vitamin D deficiency, unspecified Microalbumin, Random (w Creat) 4 Months E11.9 - Type 2 diabetes mellitus without complications AMB Hemoglobin A1c Today E11.9 - Type 2 diabetes mellitus without complications Referrals Speech and Hearing Referral H91.90 - Unspecified hearing loss, unspecified ear Medications: Refilled evolocumab (Repatha SureClick) 140 mg subcut Q2W 2 mL 4RF E78.49 - Other hyperlipidemia Coding Level of Care Code Est Pt Level 4 (19947) Diagnoses Mild recurrent major depression F33.0 Diabetes mellitus type 2, controlled E11.9 Seizures R56.9 Familial combined hyperlipidemia E78.49 Time Spent (min) 23
== END 2023-03-23 16:39 | disposition home or self-care (01) ==
PROVIDERS: PCP Internal Medicine; Visit Provider Internal Medicine
DX: F33.0 Major depressive disorder, recurrent, mild (principal); E11.9 Type 2 diabetes mellitus without complications; R56.9 Unspecified convulsions; E78.49 Other hyperlipidemia
CPT/HCPCS: 99214

== ENCOUNTER 2023-08-16 15:19 | Outpatient (AMB) | payer OTHER, SELFPAY ==
--- NOTE | 2023-08-16 15:23 | A.OFFPC_ITS ---
Vital Signs 08/16/23 15:26 Height 5 ft 9 in Weight 183 lb BMI 27.0 BP 114/70 Blood Pressure Location Lt brachial Position Sitting Intake Visit Reasons: Annual exam Intake Note: Patient here for a physical exam Sneller Hand Required: No Accompanied by: Spouse Allergies Wtigjbq-IOD-LeR Reductase Inhibitor [Zmzqtux-Vtq-Cvc Reductase Inhibitor] Allergy (Unknown, Verified 08/16/23 15:48) elevated liver enzymes Medication List - Last Reconciled 08/16/23 by Jennifer Teran MD alprazolam 2 mg PO BID PRN aripiprazole 20 mg PO BEDTIME PRN blood sugar diagnostic (FreeStyle Lite Strips) 1 strip miscellaneous BID 30 days bupropion HCl 150 mg PO QAM cholecalciferol (vitamin D3) 25 mcg PO DAILY cholestyramine (with sugar) 4 gram 4 grams PO DAILY 30 days evolocumab (Repatha SureClick) 140 mg subcut Q2W ezetimibe 10 mg PO DAILY 90 days fenofibrate micronized 67 mg PO DAILY lancets (FreeStyle Lancets) 28 gauge topical BID 30 days levetiracetam 500 mg PO BID lidocaine 5% 1 appl topical BEDTIME PRN 30 days metformin 500 mg PO BID methocarbamol 500 mg PO TID 30 days olanzapine 5 mg PO BEDTIME omega-3 acid ethyl esters 2 caps PO BID 90 days omeprazole 20 mg PO DAILY 90 days Tobacco use date assessed: 08/16/23 Dental Screening Dental Screen Date: 08/16/23 Did you have a dental visit in the last 12 months?: Yes Did you have a dental problem in the last 6 months where you did not have access to dental care?: No Was dental information given to patient?: Patient has dentist HPI HPI Comments History of Present Illness Details This is a 48-year-old male with diabetes mellitus type 2, mild major depression and seizure that comes accompanied by girlfriend Anyi for his physical exam. A1c within goal. Depression stable and follow by Psychiatry. Has not had a seizure in over 6 months. Follows with Neurology. Was referred to colonoscopy again through open access. Occasional chest wall pain when stress. [facility] Medical History Diabetes mellitus type 2, controlled GERD (gastroesophageal reflux disease) Seizures Familial combined hyperlipidemia Essential hypertension Seizure disorder Low back pain Memory loss Anxiety Dyslipidemia Hypertriglyceridemia Hypovitaminosis D Surgical History H/O right wrist surgery Hx of arthroscopy Hx of hand surgery Family History Father CVD (cardiovascular disease) Hypertension Mother Diabetes Paternal Grandmother Cancer Paternal Uncle Throat cancer Family/Other FH: mental illness Social History Household Members: Spouse Household Members Other:: Spouse: Anyi Begum Housing: House Alcohol intake: current Alcohol intake frequency: holidays/special occasions only Alcohol type: beer Patient Tobacco Use Status: Current everyday Tobacco user Tobacco use type: Cigarette Cigarettes Per Day: 2 e-Cigarette/Vaping Use: Never Used Second Hand Smoke Exposure: No service: No Current occupational status: disabled Cognitive needs: No Hearing needs: No Vision needs: No Questionnaire PHQ-9 Over the last 2 weeks, how often have you been bothered by any of the following problems? 1. Little interest or pleasure in doing things: not at all 2. Feeling down, depressed, or hopeless: not at all 3. Trouble falling or staying asleep, or sleeping too much: not at all 4. Feeling tired or having little energy: not at all 5. Poor appetite or overeating: not at all 6. Feeling bad about yourself - or that you are a failure or have let yourself or your family down: not at all 7. Trouble concentrating on things, such as reading the newspaper or watching television: not at all 8. Moving or speaking so slowly that other people could have noticed. Or the opposite - being so fidgety or restless that you have been moving around a lot more than usual: not at all 9. Thoughts that you would be better off or of hurting yourself in some way: not at all Total score: 0 Depression Screening Interpretation: Negative Depression Screening Done: Yes 43905 - PHQ-9 Billing: Yes Source: Developed by Drs. Jacob Shaw, Jenn Walton, Mohsen Eldridge and colleagues, with an educational ila from [employer]. Thrive Questionnaire Date Thrive assessed: 08/16/23 I am a: Patient What is your living situation today?: I have a steady place to live Within the past 12 months, did the food you bought not last and you didn't have the money to get more?: Never true Within the past 12 months, did you worry whether your food would run out before you got money to buy more?: Never true Do you have trouble paying for medicines?: No Do you have trouble getting transportation to medical appointments?: No Do you have trouble paying your heating and electricity bill?: No Do you have trouble taking care of your child, family member or friend?: No Do you have trouble with day-to-day activities such as bathing, preparing meals, shopping, managing finances, etc.?: No Are you currently unemployed and looking for a job?: No Are you interested in more education?: No Please select the resources that you would like help with: None Currently or been in a relationship where the following occur: no concerns reported THRIVE Score: 0 AUDIT C Alcohol Use Questionnaire (AUDIT-C) 1. How often do you have a drink containing alcohol?: Monthly or less 2. How many drinks containing alcohol do you have on a typical day when you are drinking?: 1 or 2 3. How often do you have six or more drinks on one occasion?: Never Total Score: 1 Score Reviewed/Action Taken: No LOYD-7 AMB Questionnaire LOYD-7 Date LOYD - 7 assessed: 08/16/23 Feeling nervous, anxious, or on edge: 2 = More than half the days Not being able to stop or control worryin = Not at all Worrying too much about different things: 0 = Not at all Trouble relaxin = More than half the days Being so restless that it is hard to sit still: 0 = Not at all Becoming easily annoyed or irritable: 1 = Several days Feeling afraid as if something awful might happen: 0 = Not at all Total LOYD-7 score (0-4 normal; 5-9 mild; 10-14 moderate; 15-21 severe): 5 Source: Developed by Drs. Jacob Shaw, Jenn Walton, Mohsen Eldridge and colleagues, with an educational ila from [employer] LOYD-7 Assessment Billing LOYD-7 Assessment Tool: LOYD-7 Assessment 87651 Review of Systems Const All systems reviewed & are unremarkable except as noted in HPI and below Eyes Reports no additional complaints, Denies change in vision and Denies other visual disturbances Card Reports chest pain at rest, Reports chest pain with activity, Denies edema, Denies irregular heart rhythm, Denies claudication, Denies dyspnea, Denies dyspnea on exertion, Denies orthopnea, Denies paroxysmal nocturnal dyspnea and Denies slow heart rate Resp Denies cough, Denies dyspnea and Denies dyspnea on exertion GI Denies abdominal pain, Denies change in bowel habits, Denies excessive flatus, Denies nausea and Denies vomiting Denies urinary hesitancy, Denies urinary incontinence and Denies urinary urgency Musc Denies abnormal gait, Denies atrophy, Denies deformity and Denies limited range of motion Skin/Breast Denies bleeding lesions, Denies changing lesions and Denies rash Neuro Denies abnormal gait, Denies behavioral changes, Denies confusion and Denies lack of coordination Psych Denies behavioral changes and Denies confusion Physical exam (Primary Care) Vital Signs: Last Vital Signs BP 114/70 08/16/23 15:26 BMI result Body Mass Index 27.0 Tobacco/Smoking Status: Tobacco use Status Tobacco use date assessed 08/16/23 08/16/23 15:36 Patient Tobacco Use Status Current everyday Tobacco 08/16/23 15:36 Tobacco use type Cigarette 08/16/23 15:36 e-Cigarette/Vaping Use Never Used 08/16/23 15:36 PHQ-9: PHQ-9 Score PHQ-9: Total score 0 08/16/23 15:36 Depression Screening Interpretation: Negative Thrive Assessment: Date of Thrive Assessment Date Thrive assessed 08/16/23 08/16/23 15:36 Currently or been in a relationship where the following occur: no concerns reported Const General: No confusion Orientation/consciousness: patient oriented x3 and No confusion HENMT Head: Yes normal to inspection, Yes normocephalic and Yes atraumatic Ears: external ears normal Eyes General: appearance normal, both eyes and all related structures Eyelids: Yes eyelids normal Conjunctivae: conjunctivae normal Neck Neck: Yes normal visual inspection and Yes supple Resp Effort & Inspection: normal respiratory effort Auscultation: clear to auscultation bilaterally Cardio Jugular venous distension: no JVD Rate: regular rate Rhythm: regular rhythm Heart sounds: S1 normal heart sound present and S2 normal heart sound present GI Inspection: Yes normal to inspection Palpation (GI): Soft to palpation and nontender Auscultation: normal bowel sounds Skin General skin exam: no rashes or lesions noted Neuro General: patient oriented x3, no focal motor deficits and No confusion Extrem General: Yes full ROM Psych Appearance: grossly normal Office Procedures Flu Questionnaire Does the patient have a severe egg allergy?: No Does the patient have severe life threatening allergies?: No Does the patient have a fever or illness today?: No Has the patient ever had Guillain-[place] Syndrome?: No Has the patient ever had any past reaction to a flu shot?: No Results AMB Hemoglobin A1c AMB Hemoglobin A1c 6.1 % Last Edit by KEVIN Robb on 08/16/23 15:4 2 Immunizations flu vacc [id number] 6mos up(PF) 60 mcg(15 mcgx4)/0.5 mL IM syringe Performing Provider: Jennifer Teran MD [facility] Administered by: KEVIN Robb on 08/16/23 15:41 Dose Route Admin Location Dispensed Lot Number Expiration Date NDC On Air Director 0.5 mL IM Left Deltoid 0.5 mL [id number] 01/16/24 [id number] ? VIS Given Date VIS Provided VIS Publication Date 08/16/23 Single Vaccine 21 Eligibility Eligibility Date Funding Source Not [facility] Eligible 08/16/23 Private Results Reviewed Results Reviewed: Laboratory Last Values Hgb A1c (Clinic) 6.1 % (4.0-6.0) H 08/16/23 15:40 Assessment and Plan Assessment & Plan (1) Physical exam: Code(s): Z00.00 - Encounter for general adult medical examination without abnormal f indings Plan: Repeat in a year (2) Mild recurrent major depression: Code(s): F33.0 - Major depressive disorder, recurrent, mild Plan: Continue Abilify. Follow-up with psychiatry. (3) Diabetes mellitus type 2, controlled: Code(s): E11.9 - Type 2 diabetes mellitus without complications Plan: Continue metformin. A1c goal is equal or less than 7%. (4) Seizures: Code(s): R56.9 - Unspecified convulsions Plan: Continue Keppra. Follow-up with Neurology. Orders: Orders Lipid Panel Today E78.5 - Hyperlipidemia, unspecified Microalbumin, Random (w Creat) Today E11.9 - Type 2 diabetes mellitus without complications Vitamin D 25-OH Total Today E55.9 - Vitamin D deficiency, unspecified Complete Blood Count Auto Diff Today R56.9 - Unspecified convulsions Comprehensive [place]. Panel Fast Today E11.9 - Type 2 diabetes mellitus without complications AMB Hemoglobin A1c Today E11.9 - Type 2 diabetes mellitus without complications Influenza [id number] Immunization Today Z23 - Encounter for immunization Referrals Open Access Screening Colonoscopy Referral Z12.11 - Encounter for screening for malignant neoplasm of colon Medications: Refilled lidocaine 5% 1 appl topical BEDTIME PRN 30 grams 0RF pain 30 days Coding Level of Care Code Est Pt Prev Care 40-64y(73730) Diagnoses Physical exam Z00.00 Mild recurrent major depression F33.0 Diabetes mellitus type 2, controlled E11.9 Seizures R56.9 Additional Codes LOYD-7 Assessment Billing - LOYD-7 Assessment Tool: LOYD-7 Assessment 29588 ([id number]) Time Spent (min) 33
[2023-08-16 15:26] VITALS: BP 114/70; BMI 27.0
== END 2023-08-16 15:58 | disposition home or self-care (01) ==
PROVIDERS: Visit Provider Internal Medicine
DX: Z23 Encounter for immunization (principal); Z00.00 Encounter for general adult medical examination without abnormal findings; F33.0 Major depressive disorder, recurrent, mild; E11.9 Type 2 diabetes mellitus without complications; R56.9 Unspecified convulsions
CPT/HCPCS: 83036; 90471; 90686; 99396

== ENCOUNTER 2023-09-02 12:31 | Outpatient (AMB) | payer OTHER, SELFPAY ==
[2023-09-02 12:59] VITALS: BP 124/86; PULSE 100; BMI 28.3
--- NOTE | 2023-09-02 12:59 | MHC.OFFVIS ---
Intake Vital Signs 09/02/23 12:59 Height 5 ft 9 in Weight 191 lb 5.78 oz BMI 28.3 BP 124/86 Blood Pressure Location Lt brachial Position Sitting Pulse 100 Intake Visit Reasons: 6 month fu Intake Note: Patient presents to in office visit today in 6 months follow up. CC: Pt reports doing well and denies having any GI concerns. General Hardware Salesperson Required: No Accompanied by: Spouse Allergies Rjdygfe-MUA-PzR Reductase Inhibitor [Wxeurew-Vsr-Ocp Reductase Inhibitor] Allergy (Unknown, Verified 09/02/23 13:05) elevated liver enzymes Medication List - Last Reconciled 09/02/23 by Preet Payne MD alprazolam 2 mg PO BID PRN aripiprazole 20 mg PO BEDTIME PRN blood sugar diagnostic (FreeStyle Lite Strips) 1 strip miscellaneous BID 30 days bupropion HCl 150 mg PO QAM cholecalciferol (vitamin D3) 25 mcg PO DAILY cholestyramine (with sugar) 4 gram 4 grams PO DAILY 30 days ezetimibe 10 mg PO DAILY 90 days fenofibrate micronized 67 mg PO DAILY lancets (FreeStyle Lancets) 28 gauge topical BID 30 days levetiracetam 500 mg PO BID lidocaine 5% 1 appl topical BEDTIME PRN 30 days metformin 500 mg PO BID methocarbamol 500 mg PO TID 30 days olanzapine 5 mg PO BEDTIME omega-3 acid ethyl esters 2 caps PO BID 90 days omeprazole 20 mg PO DAILY 90 days HPI 6 month fu HPI Details GI clinic visit for this 48-year-old Angolan speaking male for FU of elevated LFts due to fatty liver ?CHRONIC ILLNESSES: htn, bipolar disorder, type 2 DM and obesity with elevated LFTs ?LABS IN [facility]:?01/05/20 TB 0.5, AST 33 (decreased from 60 in 06/06), ALT 96 (decreased from 135 in 06/06) AP 77. ? 04/2016 hepatitis-B and C serologies were negative, ceruloplasmin, MILADYS and rheumatoid factor were normal. ? Normal iron studies with ferritin 204 ?IMAGING STUDIES: US 05/26/18 showed: IMPRESSION: ? Echogenic liver parenchyma, more commonly seen with hepatic steatosis. No focal lesions. ?TODAY'S VISIT: C: Pt reports doing well and denies having any GI concerns. ? ? ? Pt is accompanied by his who interpreted for the patient. ?? ? He is doing well Pt refusing to have EGD and colon done since he is afraid. planning to have the procedures. Takes a pill for heartburn Denies recent change in BMs. Family hx positive for stomach in his paternal GM (in her 80's) and paternal uncle in his 40's. ??PAST VISIT Reviewed scheduling an appt for an EGD and colonoscopy with the patient He agreed to having an EGD and refused a colonoscopy. ? Lab results were reviewed with the patient - LFTs improved with normal AST and ALT. ? Denies ETOH use. ? Eating baked food for the past 7-8 months and avoids fried food. ? Weighs 189 lbs. (weighed 204 lbs in 04/07 & 207 lbs in 08/2019) ? Lost 5 lbs over the past 2 months. ? Pt denies abdominal pain, heartburn or dysphagia. ? Denies past history of Jaundice , liver problems or known family history of liver disease. ? Appetite have been stable and denies black stool or rectal?bleeding PFSH Medical History Diabetes mellitus type 2, controlled GERD (gastroesophageal reflux disease) Seizures Familial combined hyperlipidemia Essential hypertension Seizure disorder Low back pain Memory loss Anxiety Dyslipidemia Hypertriglyceridemia Hypovitaminosis D Surgical History H/O right wrist surgery Hx of arthroscopy Hx of hand surgery Family History Father CVD (cardiovascular disease) Hypertension Mother Diabetes Paternal Grandmother Cancer Paternal Uncle Throat cancer Family/Other FH: mental illness Social History Household Members: Spouse Household Members Other:: Spouse: Anyi Begum Housing: House Alcohol intake: current Alcohol intake frequency: holidays/special occasions only Alcohol type: beer Patient Tobacco Use Status: Current everyday Tobacco user Tobacco use type: Cigarette Cigarettes Per Day: 2 e-Cigarette/Vaping Use: Never Used Second Hand Smoke Exposure: No service: No Current occupational status: disabled Cognitive needs: No Hearing needs: No Vision needs: No Review of Systems Const All systems reviewed & are unremarkable except as noted in HPI and below Physical Exam Vital Signs: Last Vital Signs Pulse 100 09/02/23 12:59 BP 124/86 09/02/23 12:59 BMI result Body Mass Index 28.3 Const General: healthy appearing and no acute distress Nutritional Appearance: overweight Orientation/consciousness: patient oriented x3 Limitations: language barrier HEENT Head: Yes normal to inspection Ears: hearing grossly normal bilaterally Eyes Sclerae: sclerae normal Pupils: Equal, round and reactive pupils present Neck Neck: Yes normal visual inspection Chest Chest palpation & inspection: normal inspection of the chest Resp Effort & Inspection: normal respiratory effort Auscultation: clear to auscultation bilaterally Cardio Palpation: normal PMI Rate: regular rate Rhythm: regular rhythm Heart sounds: S1 normal heart sound present, S2 normal heart sound present and no murmurs GI Palpation (GI): Soft to palpation, nontender and No hepatosplenomegaly present Auscultation: normal bowel sounds Rectal Exam - Male: Yes deferred Skin General skin exam: no rashes or lesions noted Neuro General: patient oriented x3, gait normal and moves all extremities Cranial nerves: Yes Equal, round and reactive pupils present Psych Appearance: grossly normal Mental Status: mental status grossly normal Assessment & Plan Assessment & Plan (1) GERD (gastroesophageal reflux disease): Code(s): K21.9 - Gastro-esophageal reflux disease without esophagitis Qualifiers: Esophagitis presence: esophagitis presence not specified Qualified Code(s): K21.9 - Gastro-esophageal reflux disease without esophagitis (2) NAFL (nonalcoholic fatty liver): Code(s): K76.0 - Fatty (change of) liver, not elsewhere classified (3) Elevated LFTs: Code(s): R79.89 - Other specified abnormal findings of blood chemistry (4) Colon cancer screening: Code(s): Z12.11 - Encounter for screening for malignant neoplasm of colon Plan 48 YM with htn, bipolar disorder, type 2 DM and obesity with elevated LFTs most likely due to fatty liver/steatohepatitis related to obesity and DM. Hepatitis A, B and C serologies were negative in the past. Lab evaluation for autoimmune hepatitis, hemochromatosis and Ze's disease was negative. His weight has been stable. Lab evaluation and 03/2020 showed some worsening of AST and ALT. FU lab evaluation showed normal LFts likely due to wt loss. Patient was advised to continue Omeprazole and try to loose another 5 to 10 lbs. 03/04/23 Pt advised to schedule an EGD (FU of GERD and family hx of gastric cancer) and a colonoscopy (colon cancer screening) Pt agreed to having an EGD and reluctant to have a colonoscopy (willing to think about it and schedule on his next visit) 09/02/23 Pt refusing to have EGD and colon done since he is afraid. planning to have the procedures. Pt was advised to do a FIT test Fu in 6 month Orders: Orders AMB Fecal Immunochemical Test Today Z12.11 - Encounter for screening for malignant neoplasm of colon Quality Reporting (2019) Adult ([facility] 138/09/09/68) Smoking risk assessment performed?: Yes Patient Tobacco Use Status: Current everyday Tobacco user Coding Level of Care Code Est Pt Level 3 (63513) Diagnoses Gastroesophageal reflux disease, unspecified whether esophagitis present K21.9 Esophagitis presence: esophagitis presence not specified NAFL (nonalcoholic fatty liver) K76.0 Elevated LFTs R79.89 Colon cancer screening Z12.11 Time Spent (min) 18
== END 2023-09-02 13:55 | disposition home or self-care (01) ==
PROVIDERS: PCP Internal Medicine; Visit Provider Internal Medicine Gastroenterology
DX: K21.9 Gastro-esophageal reflux disease without esophagitis (principal); K76.0 Fatty (change of) liver, not elsewhere classified; R79.89 Other specified abnormal findings of blood chemistry; Z12.11 Encounter for screening for malignant neoplasm of colon
CPT/HCPCS: 99213

== ENCOUNTER → 2023-09-02 12:31 | Outpatient (BNVA) | payer OTHER, SELFPAY | PROVIDERS: PCP Internal Medicine; Visit Provider Internal Medicine Gastroenterology | DX: Z12.11 Encounter for screening for malignant neoplasm of colon (principal); K21.9 Gastro-esophageal reflux disease without esophagitis; K76.0 Fatty (change of) liver, not elsewhere classified; R79.89 Other specified abnormal findings of blood chemistry | CPT/HCPCS: 99212 ==

== ENCOUNTER 2023-10-04 10:31 | Outpatient (REF) | payer OTHER, SELFPAY ==
--- NOTE | 2023-10-04 12:49 | MHC.AU.HA1 ---
Hearing Aid Evaluation Date of Visit: 10/04/23 Bonded Structures Repairer Used: Chinese- In Person Historical Information: Description of Hearing: Mild sensorineural hearing loss rising to within normal at 8kHz. Summary: Reviewed amplification options. Recommended RITE. Pt would like rechargeable. Reports that he does not use a smartphone, no interest in connectivity. Hearing Aid Prescription: Based on the individual?s shared listening needs, communication environments, dexterity, desire for connectivity, and personal preferences, the following prescription for amplification has been made: Right ear: Make, Model, Color: Oticon Real 2 miniRITE R, black, Battery Size: Rechargeable Extrusion Press Adjuster/Slim Tube: 2/85 Type of Earmold/Dome/CShell/SlimTip: 8mm dbl marin Left ear: Make, Model, Color: Oticon Real 2 miniRITE R, black, Battery Size: Rechargeable Extrusion Press Adjuster/Slim Tube: 2/85 Type of Earmold/Dome/CShell/SlimTip: 8mm dbl tomas Plan of Care: Patient wishes to purchase hearing aids as prescribed Action Taken/Action Needed: Medical Clearance to be requested from PCP/ENT Hearing Instrument Fitting to be scheduled when materials arrive Primary Diagnosis: H90.3 Bilateral Sensorineural Hearing Loss Signature: Provider: Yamileth Pantoja, CLARICE-A
== END 2023-10-04 10:32 | disposition home or self-care (01) ==
LOC: HO.SH 10:31
PROVIDERS: PCP Internal Medicine; Visit Provider Internal Medicine
DX: Z01.118 Encounter for examination of ears and hearing with other abnormal findings (principal); Z46.1 Encounter for fitting and adjustment of hearing aid; H90.3 Sensorineural hearing loss, bilateral
CPT/HCPCS: 92557; 92567; 92591

== ENCOUNTER 2023-10-22 08:40 | Outpatient (REF) | payer OTHER, SELFPAY ==
--- NOTE | 2023-10-22 10:11 | MHC.AU.HA2 ---
Hearing Instrument Fitting- Adult- Binaural Date of Visit: 10/22/23 Billet Sawyer Used: Hearing Instruments Dispensed: Right Ear: Make, Model, Color, Serial Number: Oticon Real 2 miniRITE aileen Malloy, [id number] Weld Engineer Repair Warranty: 11/05/2026 Weld Engineer Loss and Damage Warranty: 11/05/2026 [facility] Service Plan: 10/21/24 Battery Size: Rechargeable Mechanical Test Technician/Slim Tube: 2/85 Earmold/Dome/CShell/SlimTip: 8mm dbl marin Type of Wax Guard: Prowax mini fit Left Ear: Make, Model, Color, Serial Number: Oticon Real 2 miniRITE Mellissa black Serial #[id number] Weld Engineer Repair Warranty: 11/05/2026 Weld Engineer Loss and Damage Warranty: 11/05/2026 [facility] Service Plan: 10/21/24 Battery Size: Rechargeable Mechanical Test Technician/Slim Tube: 2/85 Earmold/Dome/CShell/SlimTip: 8mm dbl marin Type of Wax Guard: Prowax mini fit Accessories/Assistive Technology: Oticon minirite item processor [id number] Warranty 11/05/2026 Summary of Fitting: Here with Anyi. Fit with and oriented to binaural Oticon Real 2 HAs. Verified to DSL 5 Adult targets. Good subjective comfort and benefit reported. Reviewed charging, maintenance, precautions. Practiced insertion and removal. Recommendations: Recommendations: Hearing instrument care and maintenance were discussed and practiced. A hearing instrument follow-up was scheduled. Recommendations (Other): Diagnosis Code(s): Primary Diagnosis: H90.3 Bilateral Sensorineural Hearing Loss Secondary Diagnosis: Signature: Student/Clinical Fellow: I have reviewed/agreed with student/fellow documentation: Provider: Yamileth Pantoja, CCC-A
== END 2023-10-22 08:41 | disposition home or self-care (01) ==
LOC: HO.HAP 08:40
PROVIDERS: Visit Provider Internal Medicine
DX: Z46.1 Encounter for fitting and adjustment of hearing aid (principal); H90.3 Sensorineural hearing loss, bilateral
CPT/HCPCS: V5011; V5020; V5160; V5261

== ENCOUNTER 2023-11-10 05:56 | Outpatient (REF) | payer OTHER, SELFPAY ==
[2023-11-10 06:20] LABS: MANUAL DIFF FLAG NO
[2023-11-10 08:32] LABS: Basophils Percent Auto 0.4 % (0-2); Eosinophils Absolute Auto 0.1 X10*3/uL (0.0-0.4); Eosinophils Percent Auto 1.7 % (0-4); Hematocrit 42.6 % (42.0-52.0); Hemoglobin 14.2 g/dl (14.0-18.0); Imm Gran Abs Auto 0.04 X10*3/uL (0.00-0.03); Imm Gran Pct Auto 0.5 % (0.0-0.4); Lymphocytes Absolute Auto 3.2 X10*3/uL (1.2-4.9); Lymphocytes Percent Auto 38.8 % (20-40); Mean Corpuscular HGB Conc 33.3 g/dl (31.0-36.0); Mean Corpuscular Hemoglobin 28.9 pg (27.0-33.0); Mean Corpuscular Volume 86.6 fL (80.0-98.0); Mean Platelet Volume 13.3 fL (9.4-12.4); Monocytes Absolute Auto 0.6 X10*3/uL (0.1-1.2); Monocytes Percent Auto 6.9 % (2-11); Neutrophils Absolute Auto 4.3 x10*3/uL (2.0-8.3); Neutrophils Percent Auto 51.7 % (45-73); Platelet Count 178 X10*3/uL (160-400); Red Blood Count 4.92 X10*6/uL (4.60-5.80); Red Cell Distribution Width 13.9 % (11.0-16.0); White Blood Count 8.4 X10*3/uL (4.8-10.8)
[2023-11-10 08:57] LABS: Microalbum/Creatinine Ratio Ur 6.5 ug/mg cr (<30)
[2023-11-10 09:09] LABS: Alanine Aminotransferase 42 U/L (0-40); Albumin Level 4.3 g/dL (3.5-5.0); Alkaline Phosphatase 56 U/L (39-117); Anion Gap 12 (12-20); Aspartate Amino Transferase 22 U/L (5-37); Bilirubin Total 0.4 mg/dL (0.0-1.0); Blood Urea Nitrogen 15 mg/dL (9-16); Calcium 8.9 mg/dL (8.4-10.2); Carbon Dioxide 26 mmol/L (22-29); Chloride 110 mmol/L (96-108); Cholesterol 195 mg/dL (<200); Estimated Glomerular Filt Rate > 60; Glucose Fasting 134 mg/dL (60-99); HDL Cholesterol 39 mg/dL (>40); LDL Cholesterol Calculated 107 mg/dL (<100); Potassium 3.9 mmol/L (3.3-5.1); Sodium 144 mmol/L (135-145); Total Protein 6.7 g/dL (6.5-8.0); Triglycerides 247 mg/dL (<150)
[2023-11-10 09:12] LABS: Vitamin D 25-OH Total 36.9 ng/mL (>30)
[2023-11-13 10:14] LABS: Apolipoprotein B 89 mg/dL (<90)
[2023-11-14 16:52] LABS: Lipoprotein Asso Phospholip A2 73 (<124)
[2023-11-15 15:39] LABS: Lipoprotein A 54 nmol/L (<75)
== END 2023-11-10 05:57 | disposition home or self-care (01) ==
LOC: HO.LAB 05:56
PROVIDERS: PCP Internal Medicine; Visit Provider Internal Medicine
DX: E78.5 Hyperlipidemia, unspecified (principal); E78.49 Other hyperlipidemia; E11.9 Type 2 diabetes mellitus without complications; E55.9 Vitamin D deficiency, unspecified; R56.9 Unspecified convulsions
CPT/HCPCS: 36415; 80053; 80061; 82043; 82172; 82306; 82570; 83695; 83698; 85025

== ENCOUNTER 2024-02-14 16:35 | Outpatient (AMB) | payer OTHER, SELFPAY ==
--- NOTE | 2024-02-14 16:36 | A.OFFPC_ITS ---
Vital Signs 02/14/24 16:37 Height 5 ft 9 in Weight 181 lb BMI 26.7 BP 112/70 Blood Pressure Location Lt brachial Position Sitting Intake Visit Reasons: dm Intake Note: Patient here for a follow up DM Ice Skater Required: No Accompanied by: Spouse Allergies Tnbkjed-EDU-GlH Reductase Inhibitor [Mnkekwu-Lrd-Tid Reductase Inhibitor] Allergy (Unknown, Verified 02/14/24 16:46) elevated liver enzymes Medication List - Last Reconciled 02/14/24 by Jennifer Teran MD alprazolam 2 mg PO BID PRN aripiprazole 20 mg PO BEDTIME PRN blood sugar diagnostic (FreeStyle Lite Strips) 1 strip miscellaneous BID 30 days bupropion HCl XL 150 mg PO QAM cholecalciferol (vitamin D3) 25 mcg PO DAILY cholestyramine (with sugar) 4 gram 4 grams PO DAILY 30 days evolocumab (Repatha SureClick) 140 mg subcut Q2W 30 days ezetimibe 10 mg PO DAILY 90 days fenofibrate micronized 67 mg PO DAILY lancets (FreeStyle Lancets) 28 gauge topical BID 30 days levetiracetam 500 mg PO BID lidocaine 5% 1 appl topical BEDTIME PRN 30 days metformin 500 mg PO BID methocarbamol 500 mg PO TID 30 days olanzapine 5 mg PO BEDTIME omega-3 acid ethyl esters 2 caps PO BID 90 days omeprazole 20 mg PO DAILY 90 days Tobacco use date assessed: 08/16/23 Dental Screening Dental Screen Date: 08/16/23 HPI HPI Comments History of Present Illness Details This is a 49-year-old male with diabetes mellitus type 2, dyslipidemia, mild recurrent major depression and seizures that comes today accompanied by significant other for follow-up on his conditions. A1c within goal. Lipid panel will be order and his LDL goal should be less than 70. Depression well controlled with medications and this is follow by Psychiatry. Has not had a seizure in over 6 months and is follow by Neurology. No chest pain or shortness on breath. [facility] Medical History Diabetes mellitus type 2, controlled GERD (gastroesophageal reflux disease) Seizures Familial combined hyperlipidemia Essential hypertension Seizure disorder Low back pain Memory loss Anxiety Dyslipidemia Hypertriglyceridemia Hypovitaminosis D Surgical History H/O right wrist surgery Hx of arthroscopy Hx of hand surgery Family History Father CVD (cardiovascular disease) Hypertension Mother Diabetes Paternal Grandmother Cancer Paternal Uncle Throat cancer Family/Other FH: mental illness Social History (Updated 02/14/24 @ 16:51 by Jennifer Teran MD) Household Members: Spouse Household Members Other:: Spouse: Anyi Begum Housing: House Alcohol intake: current Alcohol intake frequency: holidays/special occasions only Alcohol type: beer Patient Tobacco Use Status: Current everyday Tobacco user Tobacco use type: Cigarette Cigarettes Per Day: 5 e-Cigarette/Vaping Use: Never Used Second Hand Smoke Exposure: No service: No Current occupational status: disabled Cognitive needs: No Hearing needs: No Vision needs: No Questionnaire Thrive Questionnaire Date Thrive assessed: 08/16/23 LOYD-7 AMB Questionnaire LOYD-7 Date LOYD - 7 assessed: 08/16/23 Source: Developed by Drs. Jacob Shaw, Jenn Walton, Mohsen Eldridge and colleagues, with an educational ila from [employer]. Review of Systems Const All systems reviewed & are unremarkable except as noted in HPI and below Card Denies chest pain at rest, Denies chest pain with activity, Denies edema, Denies irregular heart rhythm, Denies claudication, Denies dyspnea, Denies dyspnea on exertion, Denies orthopnea, Denies paroxysmal nocturnal dyspnea and Denies slow heart rate Resp Denies cough, Denies dyspnea and Denies dyspnea on exertion GI Denies abdominal pain, Denies change in bowel habits, Denies excessive flatus, Denies nausea and Denies vomiting Neuro Denies lack of coordination Physical exam (Primary Care) Vital Signs: Last Vital Signs BP 112/70 02/14/24 16:37 BMI result Body Mass Index 26.7 Tobacco/Smoking Status: Tobacco use Status Tobacco use date assessed 08/16/23 02/14/24 16:44 Patient Tobacco Use Status Current everyday Tobacco 02/14/24 16:44 Tobacco use type Cigarette 02/14/24 16:44 e-Cigarette/Vaping Use Never Used 02/14/24 16:44 Are you ready to quit: No Tobacco cessation counseling provided: Yes Items discussed: [employer]uit[employer] Relapse Prevention: discussed the importance of a supportive environment, discussed negative mood or depression after quitting, weight gain after smoking is common and discussed dietary, exercise and/or lifestyle changes Number of minutes spent counselin CPT code: 54475 - 4-10 Minutes Thrive Assessment: Date of Thrive Assessment Date Thrive assessed 08/16/23 02/14/24 16:44 Resp Effort & Inspection: normal respiratory effort Auscultation: clear to auscultation bilaterally Cardio Jugular venous distension: no JVD Rate: regular rate Rhythm: regular rhythm Heart sounds: S1 normal heart sound present and S2 normal heart sound present Extrem General: Yes full ROM Results AMB Hemoglobin A1c AMB Hemoglobin A1c 6.2 % Last Edit by KEVIN Robb on 02/14/24 16:4 8 Assessment and Plan Assessment & Plan (1) Mild recurrent major depression: Code(s): F33.0 - Major depressive disorder, recurrent, mild Plan: Continue Abilify. Follow-up with psychiatry. (2) Diabetes mellitus type 2, controlled: Code(s): E11.9 - Type 2 diabetes mellitus without complications Plan: Continue metformin. A1c goal is equal or less than 7%. (3) Seizures: Code(s): R56.9 - Unspecified convulsions Plan: Continue Keppra. Follow-up with Neurology (4) Dyslipidemia: Code(s): E78.5 - Hyperlipidemia, unspecified Plan: Continue Zetia and Repatha. LDL goal is less than 70. Orders: Orders Lipid Panel 4 Months E78.5 - Hyperlipidemia, unspecified AMB Hemoglobin A1c Today E11.9 - Type 2 diabetes mellitus without complications Microalbumin, Random (w Creat) 4 Months E11.9 - Type 2 diabetes mellitus without complications Vitamin D 25-OH Total 4 Months E55.9 - Vitamin D deficiency, unspecified Comprehensive [place]. Panel Fast 4 Months E11.9 - Type 2 diabetes mellitus without complications Medications: New triamcinolone acetonide 0.1% 1 appl topical DAILY 2 weeks 15 grams 0RF Coding Level of Care Code Est Pt Level 4 (45722) Complex EM visit Add On G2211 Diagnoses Mild recurrent major depression F33.0 Diabetes mellitus type 2, controlled E11.9 Seizures R56.9 Dyslipidemia E78.5 Additional Codes Vital Signs *Quality* - CPT code: 94886 - 4-10 Minutes ([id number]) Time Spent (min) 22
[2024-02-14 16:37] VITALS: BP 112/70; BMI 26.7
== END 2024-02-14 16:55 | disposition home or self-care (01) ==
PROVIDERS: PCP Internal Medicine; Visit Provider Internal Medicine
DX: E11.69 Type 2 diabetes mellitus with other specified complication (principal); F33.0 Major depressive disorder, recurrent, mild; R56.9 Unspecified convulsions; E78.5 Hyperlipidemia, unspecified
CPT/HCPCS: 83036; 99214; G2211

== ENCOUNTER 2024-03-09 11:24 | Outpatient (AMB) | payer OTHER, SELFPAY ==
--- NOTE | 2024-03-09 11:29 | MHC.OFFVIS ---
Vital Signs 03/09/24 11:32 Height 5 ft 9 in Weight 180 lb BMI 26.6 BP 116/77 Blood Pressure Location Lt brachial Position Sitting Pulse 76 Intake Visit Reasons: follow up Intake Note: Patient follow up for GERD. Patient denies any GI issues. Gas Meter Prover Required: No Accompanied by: Spouse Allergies Caiilae-GYC-GlV Reductase Inhibitor [Ijhucnb-Cjm-Vfq Reductase Inhibitor] Allergy (Unknown, Verified 03/09/24 11:27) elevated liver enzymes Medication List - Last Reconciled 03/09/24 by Preet Payne MD alprazolam 2 mg PO BID PRN aripiprazole 20 mg PO BEDTIME PRN blood sugar diagnostic (FreeStyle Lite Strips) 1 strip miscellaneous BID 30 days bupropion HCl XL 150 mg PO QAM cholecalciferol (vitamin D3) 25 mcg PO DAILY cholestyramine (with sugar) 4 gram 4 grams PO DAILY 30 days evolocumab (Repatha SureClick) 140 mg subcut Q2W 30 days evolocumab (Repatha SureClick) 140 mg subcut Q2W ezetimibe 10 mg PO DAILY 90 days fenofibrate micronized 67 mg PO DAILY lancets (FreeStyle Lancets) 28 gauge topical BID 30 days levetiracetam 500 mg PO BID lidocaine 5% 1 appl topical BEDTIME PRN 30 days metformin 500 mg PO BID methocarbamol 500 mg PO TID 30 days olanzapine 5 mg PO BEDTIME omega-3 acid ethyl esters 2 caps PO BID 90 days omeprazole 20 mg PO DAILY 90 days triamcinolone acetonide 0.1% 1 appl topical DAILY 2 weeks HPI HPI follow up: Details: GI clinic visit for this 49-year-old Nepali speaking male for FU of elevated LFts due to fatty liver ?CHRONIC ILLNESSES: htn, bipolar disorder, type 2 DM and obesity with elevated LFTs ?LABS IN [facility]:?01/05/20 TB 0.5, AST 33 (decreased from 60 in 06/06), ALT 96 (decreased from 135 in 06/06) AP 77. ? 04/2016 hepatitis-B and C serologies were negative, ceruloplasmin, JENNIFER and rheumatoid factor were normal. ? Normal iron studies with ferritin 204 ?IMAGING STUDIES: US 05/26/18 showed: IMPRESSION: ? Echogenic liver parenchyma, more commonly seen with hepatic steatosis. No focal lesions. ?TODAY'S VISIT: C: Pt reports doing well and denies having any GI concerns. ? ? ? Pt is accompanied by his who interpreted for the patient. ?? ? Complains of dental pain and being treated with antibiotics. Pt initially refusing to have EGD and colon and now agrees to proceed.. planning to have the procedures. Takes a pill for heartburn Denies recent change in BMs. Family hx positive for stomach cancer in his paternal GM (in her 80's) and paternal uncle in his 40's. ??PAST VISIT Reviewed scheduling an appt for an EGD and colonoscopy with the patient He agreed to having an EGD and refused a colonoscopy. ? Lab results were reviewed with the patient - LFTs improved with normal AST and ALT. ? Denies ETOH use. ? Eating baked food for the past 7-8 months and avoids fried food. ? Weighs 189 lbs. (weighed 204 lbs in 04/07 & 207 lbs in 08/2019) ? Lost 5 lbs over the past 2 months. ? Pt denies abdominal pain, heartburn or dysphagia. ? Denies past history of Jaundice , liver problems or known family history of liver disease. ? Appetite have been stable and denies black stool or rectal?bleeding PFSH Medical History Diabetes mellitus type 2, controlled GERD (gastroesophageal reflux disease) Seizures Familial combined hyperlipidemia Essential hypertension Seizure disorder Low back pain Memory loss Anxiety Dyslipidemia Hypertriglyceridemia Hypovitaminosis D Surgical History H/O right wrist surgery Hx of arthroscopy Hx of hand surgery Family History Father CVD (cardiovascular disease) Hypertension Mother Diabetes Paternal Grandmother Cancer Paternal Uncle Throat cancer Family/Other FH: mental illness Social History Household Members: Spouse Household Members Other:: Spouse: Anyi Begum Housing: House Alcohol intake: current Alcohol intake frequency: holidays/special occasions only Alcohol type: beer Patient Tobacco Use Status: Current everyday Tobacco user Tobacco use type: Cigarette Cigarettes Per Day: 5 e-Cigarette/Vaping Use: Never Used Second Hand Smoke Exposure: No service: No Current occupational status: disabled Cognitive needs: No Hearing needs: No Vision needs: No Review of Systems Const All systems reviewed & are unremarkable except as noted in HPI and below Physical Exam Vital Signs: Last Vital Signs Pulse 76 03/09/24 11:32 BP 116/77 03/09/24 11:32 BMI result Body Mass Index 26.6 Const General: healthy appearing and no acute distress Nutritional Appearance: overweight Orientation/consciousness: patient oriented x3 Limitations: language barrier HEENT Head: Yes normal to inspection Ears: hearing grossly normal bilaterally Eyes Sclerae: sclerae normal Pupils: Equal, round and reactive pupils present Neck Neck: Yes normal visual inspection Chest Chest palpation & inspection: normal inspection of the chest Resp Effort & Inspection: normal respiratory effort Auscultation: clear to auscultation bilaterally Cardio Palpation: normal PMI Rate: regular rate Rhythm: regular rhythm Heart sounds: S1 normal heart sound present, S2 normal heart sound present and no murmurs GI Palpation (GI): Soft to palpation, nontender and No hepatosplenomegaly present Auscultation: normal bowel sounds Rectal Exam - Male: Yes deferred Skin General skin exam: no rashes or lesions noted Neuro General: patient oriented x3, gait normal and moves all extremities Cranial nerves: Yes Equal, round and reactive pupils present Psych Appearance: grossly normal Mental Status: mental status grossly normal Quality Reporting (2019) Adult ([facility] 13809/09/68) Smoking risk assessment performed?: Yes Patient Tobacco Use Status: Current everyday Tobacco user Assessment & Plan Assessment & Plan (1) Elevated LFTs: Code(s): R79.89 - Other specified abnormal findings of blood chemistry Category: Medical (2) NAFL (nonalcoholic fatty liver): Code(s): K76.0 - Fatty (change of) liver, not elsewhere classified Category: Medical (3) GERD (gastroesophageal reflux disease): Code(s): K21.9 - Gastro-esophageal reflux disease without esophagitis Category: Medical Qualifiers: Esophagitis presence: esophagitis presence not specified Qualified Code(s): K21.9 - Gastro-esophageal reflux disease without esophagitis (4) Colon cancer screening: Code(s): Z12.11 - Encounter for screening for malignant neoplasm of colon Category: Medical Plan 49 YM with htn, bipolar disorder, type 2 DM and obesity with elevated LFTs most likely due to fatty liver/steatohepatitis related to obesity and DM. Hepatitis A, B and C serologies were negative in the past. Lab evaluation for autoimmune hepatitis, hemochromatosis and Ze's disease was negative. His weight has been stable. Lab evaluation on 03/2020 showed some worsening of AST and ALT. FU lab evaluation showed normal LFTs likely due to wt loss. Patient was advised to continue Omeprazole and try to loose another 5 to 10 lbs. 03/04/23 Pt advised to schedule an EGD (FU of GERD and family hx of gastric cancer) and a colonoscopy (colon cancer screening) Pt agreed to having an EGD and reluctant to have a colonoscopy (willing to think about it and schedule on his next visit) 09/02/23 Pt refusing to have EGD and colon done since he is afraid. planning to have the procedures. Pt was advised to do a FIT test 03/09/24 Pt agreed to having EGD (FU of GERD) and Colon (screening) Both procedures and potential complications including bleeding, perforation, reaction to anesthetics and aspiration pneumonia were reviewed with the patient and his . He would like to proceed FU in 6 month Medications: New bisacodyl (Dulcolax (bisacodyl)) Take 4 tablets at 12 pm the day before colonoscopy appointment 20 mg (4 x 5 mg) PO ONCE 4 tabs 0RF colon prep 1 day polyethylene glycol 3350 (Miralax) Mix Miralax with 64 oz(8 cups) of Crystal light. Take 2 tablets of Dulcolax qt 12 pm. Wait to have your 1st bowel movement, then begin drinking Miralax. Drink a glass of Miralax every 10-15 minutes until you are finished. You will drink at least another 4 cups of clear liquid of your choice over the next 2 hours. Please drink as many clear liquids as possible You may have clear liquids up to four hours before your procedure 17 grams PO DAILY 238 grams 0RF 1 day Coding Level of Care Code Est Pt Level 4 (36210) Diagnoses Elevated LFTs R79.89 NAFL (nonalcoholic fatty liver) K76.0 Gastroesophageal reflux disease, unspecified whether esophagitis present K21.9 Esophagitis presence: esophagitis presence not specified Colon cancer screening Z12.11 Time Spent (min) 22
[2024-03-09 11:32] VITALS: BP 116/77; PULSE 76; BMI 26.6
== END 2024-03-09 13:03 | disposition home or self-care (01) ==
PROVIDERS: PCP Internal Medicine; Visit Provider Internal Medicine Gastroenterology
DX: R79.89 Other specified abnormal findings of blood chemistry (principal); K76.0 Fatty (change of) liver, not elsewhere classified; K21.9 Gastro-esophageal reflux disease without esophagitis; Z12.11 Encounter for screening for malignant neoplasm of colon
CPT/HCPCS: 99214

== ENCOUNTER → 2024-03-09 11:24 | Outpatient (BNVA) | payer OTHER, SELFPAY | PROVIDERS: PCP Internal Medicine; Visit Provider Internal Medicine Gastroenterology | DX: K21.9 Gastro-esophageal reflux disease without esophagitis (principal); K76.0 Fatty (change of) liver, not elsewhere classified; R79.89 Other specified abnormal findings of blood chemistry | CPT/HCPCS: 99212 ==

== ENCOUNTER 2024-03-18 07:25 | Outpatient (REF) | payer OTHER, SELFPAY ==
[2024-03-18 08:56] LABS: Alanine Aminotransferase 26 U/L (0-40); Albumin Level 4.2 g/dL (3.5-5.0); Alkaline Phosphatase 65 U/L (39-117); Anion Gap 12 (12-20); Aspartate Amino Transferase 24 U/L (5-37); Bilirubin Total 0.3 mg/dL (0.0-1.0); Blood Urea Nitrogen 13 mg/dL (9-16); Calcium 9.3 mg/dL (8.4-10.2); Carbon Dioxide 29 mmol/L (22-29); Chloride 110 mmol/L (96-108); Cholesterol 106 mg/dL (<200); Estimated Glomerular Filt Rate > 60; Glucose Fasting 104 mg/dL (60-99); HDL Cholesterol 38 mg/dL (>40); LDL Cholesterol Calculated 38 mg/dL (<100); Potassium 3.8 mmol/L (3.3-5.1); Sodium 147 mmol/L (135-145); Total Protein 6.8 g/dL (6.5-8.0); Triglycerides 154 mg/dL (<150)
[2024-03-18 09:14] LABS: Vitamin D 25-OH Total 55.6 ng/mL (>30)
[2024-03-18 09:35] LABS: Creatinine Urine 248.05 mg/dL; Microalbum/Creatinine Ratio Ur 3.6 ug/mg cr (<30)
== END 2024-03-18 07:26 | disposition home or self-care (01) ==
LOC: HO.LAB 07:25
PROVIDERS: PCP Internal Medicine; Visit Provider Internal Medicine
DX: E11.9 Type 2 diabetes mellitus without complications (principal); E78.49 Other hyperlipidemia; E78.5 Hyperlipidemia, unspecified; E55.9 Vitamin D deficiency, unspecified
CPT/HCPCS: 36415; 80053; 80061; 82043; 82306; 82570

== ENCOUNTER 2024-11-21 10:41 | Outpatient (AMB) | payer OTHER, SELFPAY ==
--- NOTE | 2024-11-21 10:53 | A.OFFPC_ITS ---
Vital Signs 11/21/24 10:57 Height 5 ft 9 in Weight 192 lb BMI 28.4 BP 104/70 Blood Pressure Location Lt brachial Position Sitting Intake Visit Reasons: annual exam Intake Note: Patient here for an annual physical exam Chair Trimmer Required: No Accompanied by: Significant Other Allergies Auxzixz-LPN-FgN Reductase Inhibitor [Vmprzbj-Fbd-Pgh Reductase Inhibitor] Allergy (Unknown, Verified 11/21/24 11:18) elevated liver enzymes Medication List - Last Reconciled 11/21/24 by Jennifer Teran MD alprazolam 2 mg PO BID PRN aripiprazole 20 mg PO BEDTIME PRN bisacodyl (Dulcolax (bisacodyl)) 20 mg (4 x 5 mg) PO ONCE 1 day blood sugar diagnostic (FreeStyle Lite Strips) 1 strip miscellaneous BID 30 days bupropion HCl XL 150 mg PO QAM cholecalciferol (vitamin D3) (Vitamin D3) 25 mcg PO DAILY cholestyramine (with sugar) 4 gram 4 grams PO DAILY 30 days evolocumab (Repatha SureClick) 140 mg subcut Q2W 30 days ezetimibe 10 mg PO DAILY 90 days fenofibrate micronized 67 mg PO DAILY lancets (FreeStyle Lancets) 28 gauge topical BID 30 days levetiracetam 500 mg PO BID lidocaine 5% 1 appl topical BEDTIME PRN 30 days metformin 500 mg PO BID methocarbamol 500 mg PO TID 30 days olanzapine 5 mg PO BEDTIME omega-3 acid ethyl esters 2 caps PO BID 90 days omeprazole 20 mg PO DAILY 90 days polyethylene glycol 3350 (Miralax) 17 grams PO DAILY 1 day triamcinolone acetonide 0.1% 1 appl topical DAILY 2 weeks Tobacco use date assessed: 08/16/23 Dental Screening Dental Screen Date: 08/16/23 HPI HPI Comments History of Present Illness Details The patient is a 49-year-old male presenting for his annual physical examination. He has a confirmed diagnosis of Type 2 Diabetes Mellitus, which is well controlled with an A1c of 6%. Hypertension and hyperlipidemia are ongoing issues, and he has been using Repatha and fenofibrate for his hyperlipidemia; however, LDL cholesterol levels are not at target. The patient's history includes seizures that are currently managed without recent occurrences. He received a tetanus vaccination nine years ago and denies any recent need for vaccine updates. Family history presents with paternal hypertension and coronary artery disease, along with maternal hypercholesterolemia and diabetes. The patient reports experiencing depressive symptoms, managed with a regime that includes metformin, metocarbamol, and olanzapine. The patient is resistant to undergoing colonoscopy despite prior counseling by gastroenterology. His past surgical history comprises wrist surgery, arthroscopy, and finger surgery. The patient engages in regular skin care using Dove soap and may require further dermatology evaluation. Dietary discussions revolved around reducing fat intake to manage lipid levels. - A1c level maintained at 6%, indicating controlled Type 2 Diabetes Mellitus. - Tetanus vaccination occurred 9 years a go. - Discussion on reducing dietary fat int steffanie to improve hyperlipidemia. - Regular use of non-perfumed Dove soap for dermatologic maintenance. - Resistance to undergoing a colonoscopy despite prior gastroenterology recommendation. [facility] Medical History (Updated 11/21/24 @ 11:42 by Jennifer Teran MD) Diabetes mellitus type 2, controlled GERD (gastroesophageal reflux disease) Seizures Familial combined hyperlipidemia Essential hypertension Seizure disorder Low back pain Memory loss Anxiety Dyslipidemia Hypertriglyceridemia Hypovitaminosis D Surgical History H/O right wrist surgery Hx of arthroscopy Hx of hand surgery Family History Father CVD (cardiovascular disease) Hypertension Mother Diabetes Paternal Grandmother Cancer Paternal Uncle Throat cancer Family/Other FH: mental illness Social History (Updated 11/21/24 @ 11:24 by Jennifer Teran MD) Household Members: Spouse Household Members Other:: Spouse: Anyi Begum Housing: House Alcohol intake: current Alcohol intake frequency: holidays/special occasions only Alcohol type: beer Patient Tobacco Use Status: Current everyday Tobacco user Tobacco use type: Cigarette Cigarettes Per Day: 2 e-Cigarette/Vaping Use: Never Used Second Hand Smoke Exposure: No service: No Current occupational status: disabled Cognitive needs: No Hearing needs: No Vision needs: No Questionnaire PHQ-9 Over the last 2 weeks, how often have you been bothered by any of the following problems? 1. Little interest or pleasure in doing things: not at all 2. Feeling down, depressed, or hopeless: not at all 3. Trouble falling or staying asleep, or sleeping too much: several days 4. Feeling tired or having little energy: not at all 5. Poor appetite or overeating: not at all 6. Feeling bad about yourself - or that you are a failure or have let yourself or your family down: not at all 7. Trouble concentrating on things, such as reading the newspaper or watching television: not at all 8. Moving or speaking so slowly that other people could have noticed. Or the opposite - being so fidgety or restless that you have been moving around a lot more than usual: not at all 9. Thoughts that you would be better off or of hurting yourself in some way: not at all Total score: 1 Depression Screening Interpretation: Positive Depression Screening Follow-up: Existing condition, In treatment, Community Mental Health Worker F/U and Follow- up Visit Requested Depression Screening Done: Yes 19727 - PHQ-9 Billing: Yes Source: Developed by Drs. Jacob Shaw, Jenn Walton, Mohsen Eldridge and colleagues, with an educational ila from [employer]. Thrive Questionnaire Date Thrive assessed: 11/21/24 I am a: Patient What is your living situation today?: I have a steady place to live Within the past 12 months, did the food you bought not last and you didn't have the money to get more?: Never true Within the past 12 months, did you worry whether your food would run out before you got money to buy more?: Never true Do you have trouble paying for medicines?: No Do you have trouble getting transportation to medical appointments?: No Do you have trouble paying your heating and electricity bill?: No Do you have trouble taking care of your child, family member or friend?: No Do you have trouble with day-to-day activities such as bathing, preparing meals, shopping, managing finances, etc.?: No Are you currently unemployed and looking for a job?: No Are you interested in more education?: No Please select the resources that you would like help with: None Currently or been in a relationship where the following occur: No concerns reported THRIVE Score: 0 AUDIT C Alcohol Use Questionnaire (AUDIT-C) 1. How often do you have a drink containing alcohol?: Monthly or less 2. How many drinks containing alcohol do you have on a typical day when you are drinking?: 1 or 2 3. How often do you have six or more drinks on one occasion?: Never Total Score: 1 Score Reviewed/Action Taken: No LOYD-7 AMB Questionnaire LOYD-7 Date LOYD - 7 assessed: 11/21/24 Feeling nervous, anxious, or on edge: 1 = Several days Not being able to stop or control worryin = Not at all Worrying too much about different things: 1 = Several days Trouble relaxin = Not at all Being so restless that it is hard to sit still: 0 = Not at all Becoming easily annoyed or irritable: 0 = Not at all Feeling afraid as if something awful might happen: 0 = Not at all Total LOYD-7 score (0-4 normal; 5-9 mild; 10-14 moderate; 15-21 severe): 2 Source: Developed by Drs. Jacob Shaw, Jenn Walton, Mohsen Eldridge and colleagues, with an educational ila from [employer]. LOYD-7 Assessment Billing LOYD-7 Assessment Tool: LOYD-7 Assessment 53053 Review of Systems Const All systems reviewed & are unremarkable except as noted in HPI and below Card Denies chest pain at rest, Denies chest pain with activity, Denies edema, Denies irregular heart rhythm, Denies claudication, Denies dyspnea, Denies dyspnea on exertion, Denies orthopnea, Denies paroxysmal nocturnal dyspnea and Denies slow heart rate Resp Denies cough, Denies dyspnea and Denies dyspnea on exertion Physical exam (Primary Care) Vital Signs: Last Vital Signs BP 104/70 11/21/24 10:57 BMI result Body Mass Index 28.4 Tobacco/Smoking Status: Tobacco use Status Tobacco use date assessed 08/16/23 11/21/24 10:55 Patient Tobacco Use Status Current everyday Tobacco 11/21/24 10:55 Tobacco use type Cigarette 11/21/24 10:55 e-Cigarette/Vaping Use Never Used 11/21/24 10:55 PHQ-9: PHQ-9 Score PHQ-9: Total score 1 11/21/24 11:00 Depression Screening Interpretation: Positive Depression Screening Follow-up: Existing condition, In treatment, Community Mental Health Worker F/U and Follow- up Visit Requested Thrive Assessment: Date of Thrive Assessment Date Thrive assessed 11/21/24 11/21/24 10:55 Currently or been in a relationship where the following occur: No concerns reported [facility] Head: Yes normal to inspection, Yes normocephalic and Yes atraumatic Ears: external ears normal Eyes General: appearance normal, both eyes and all related structures Eyelids: Yes eyelids normal Conjunctivae: conjunctivae normal Neck Neck: Yes normal visual inspection and Yes supple Resp Effort & Inspection: normal respiratory effort Auscultation: clear to auscultation bilaterally Cardio Jugular venous distension: no JVD Rate: regular rate Rhythm: regular rhythm Heart sounds: S1 normal heart sound present and S2 normal heart sound present GI Inspection: Yes normal to inspection Palpation (GI): Soft to palpation and nontender Auscultation: normal bowel sounds Skin General skin exam: no rashes or lesions noted Neuro General: no focal motor deficits Extrem General: Yes full ROM Psych Appearance: grossly normal Results AMB Hemoglobin A1c AMB Hemoglobin A1c 6.0 % Last Edit by KEVIN Robb on 11/21/24 11:0 5 Results Reviewed Results Reviewed: Laboratory Last Values Hgb A1c (Clinic) 6.0 % (4.0-6.0) 11/21/24 10:44 Coding Level of Care Code Est Pt Level 3 (69249) Est Pt Prev Care 40-64y(03242) Diagnoses Physical exam Z00.00 Mild recurrent major depression F33.0 Skin lesion L98.9 Diabetes mellitus type 2, controlled E11.9 Seizures R56.9 Additional Codes PHQ-9 - 01862 - PHQ-9 Billing: Yes ([id number]) LOYD-7 Assessment Billing - LOYD-7 Assessment Tool: LOYD-7 Assessment 27063 ([id number]) Time Spent (min) 35 Assessment & Plan Assessment & Plan (1) Physical exam: Code(s): Z00.00 - Encounter for general adult medical examination without abnormal findings Category: Medical (2) Mild recurrent major depression: Code(s): F33.0 - Major depressive disorder, recurrent, mild Category: Medical (3) Skin lesion: Code(s): L98.9 - Disorder of the skin and subcutaneous tissue, unspecified Category: Medical (4) Diabetes mellitus type 2, controlled: Code(s): E11.9 - Type 2 diabetes mellitus without complications Category: Medical (5) Seizures: Code(s): R56.9 - Unspecified convulsions Category: Medical Plan During the visit, I confirmed the patient's Type 2 Diabetes Mellitus is well controlled and continue current management. For hyperlipidemia, we'll repeat testing for LDL cholesterol to assess the response to Repatha and fenofibrate, considering dosage adjustments if necessary. The patient's resistance to colonoscopy as a screening test for colon cancer was addressed, with encouragement to reconsider due to familial risks. His dermatologic health will likely require further evaluation by dermatology specialists. Dietary modifications were discussed to influence lipid levels, focusing on decreasing fatty food intake. Continuation of his current medication management for depressive symptoms remains essential, with recommendations for consistent monitoring and potential psychiatric consultation as indicated. Patient was informed and verbally consented to the use of an ambient scribe for clinic note documentation during this visit. During the visit, I emphasized the importance of managing Type 2 Diabetes Mellitus, hypertension, hyperlipidemia, and depression effectively. I discussed with the patient the need to monitor LDL cholesterol closely due to not meeting target levels, despite ongoing treatment with Repatha and fenofibrate. I explained the benefits of colonoscopy for colorectal cancer screening, given family history, and encouraged the patient to reconsider deferred procedures. We reviewed the dietary impact on health, highlighting reduced intake of fatty foods. The continuation of pharmacotherapy for depressive symptoms was confirmed, and further psychiatric consultation was considered if needed. Follow-up planning was coordinated to ensure continuity of care and progress tracking. Orders: Orders Microalbumin, Random (w Creat) Today R80.9 - Proteinuria, unspecified Vitamin D 25-OH Total Today E55.9 - Vitamin D deficiency, unspecified Comprehensive [place]. Panel Fast Today Z00.00 - Encounter for general adult medical examination without abnormal findings AMB Hemoglobin A1c Today E11.9 - Type 2 diabetes mellitus without complications Lipid Panel Today E78.5 - Hyperlipidemia, unspecified Referrals Dermatology Referral L98.9 - Disorder of the skin and subcutaneous tissue, unspecified Medications: Refilled triamcinolone acetonide 0.1% 1 appl topical DAILY 2 weeks 15 grams 0RF Patient Instructions: - Continue diabetes management as currently prescribed. - Schedule a follow-up for LDL cholesterol testing. - Reduce dietary intake of fatty foods. - Maintain current medications for depressive symptoms. - Consider the benefits of colonoscopy for cancer screening. - Follow through with dermatologic care if any new symptoms occur.
[2024-11-21 10:57] VITALS: BP 104/70; BMI 28.4
== END 2024-11-21 11:29 | disposition home or self-care (01) ==
LOC: HO.HMCH 10:41
PROVIDERS: PCP Internal Medicine; Visit Provider Internal Medicine
DX: Z00.00 Encounter for general adult medical examination without abnormal findings (principal); E11.9 Type 2 diabetes mellitus without complications; R56.9 Unspecified convulsions; F33.0 Major depressive disorder, recurrent, mild; L98.9 Disorder of the skin and subcutaneous tissue, unspecified

== ENCOUNTER → 2024-11-21 10:41 | Outpatient (BNVA) | payer OTHER, SELFPAY | PROVIDERS: PCP Internal Medicine; Visit Provider Internal Medicine | DX: Z00.01 Encounter for general adult medical examination with abnormal findings (principal); F33.0 Major depressive disorder, recurrent, mild; L98.9 Disorder of the skin and subcutaneous tissue, unspecified; E11.9 Type 2 diabetes mellitus without complications; R56.9 Unspecified convulsions | CPT/HCPCS: 83036; 96127; 99212; 99396 ==

== ENCOUNTER 2024-11-22 06:24 | Outpatient (REF) | payer OTHER, SELFPAY ==
[2024-11-22 07:52] LABS: Alanine Aminotransferase 28 U/L (0-40); Albumin Level 4.3 g/dL (3.5-5.0); Alkaline Phosphatase 61 U/L (39-117); Anion Gap 10 (12-20); Aspartate Amino Transferase 26 U/L (5-37); Bilirubin Total 0.5 mg/dL (0.0-1.0); Blood Urea Nitrogen 15 mg/dL (9-16); Carbon Dioxide 24 mmol/L (22-29); Chloride 109 mmol/L (96-108); Cholesterol 140 mg/dL (<200); Estimated Glomerular Filt Rate > 60; Glucose Fasting 113 mg/dL (60-99); HDL Cholesterol 33 mg/dL (>40); LDL Cholesterol Calculated 32 mg/dL (<100); Sodium 139 mmol/L (135-145); Total Protein 6.8 g/dL (6.5-8.0); Triglycerides 375 mg/dL (<150)
[2024-11-22 07:58] LABS: Vitamin D 25-OH Total 47.2 ng/mL (>30)
[2024-11-22 08:20] LABS: Creatinine Urine 190.31 mg/dL; Microalbum/Creatinine Ratio Ur 3.6 ug/mg cr (<30)
== END 2024-11-22 06:25 | disposition home or self-care (01) ==
LOC: HO.LAB 06:24
PROVIDERS: PCP Internal Medicine; Visit Provider Internal Medicine
DX: E11.9 Type 2 diabetes mellitus without complications (principal); E78.5 Hyperlipidemia, unspecified; E55.9 Vitamin D deficiency, unspecified
CPT/HCPCS: 36415; 80053; 80061; 82043; 82306; 82570

== ENCOUNTER 2025-04-04 13:31 | Outpatient (AMB) | payer OTHER, SELFPAY ==
[2025-04-04 13:34] VITALS: BP 116/80; PULSE 84; O2SAT 98; BMI 26.8
--- NOTE | 2025-04-04 13:34 | A.OFFPC_ITS ---
Vital Signs 04/04/25 13:34 Height 5 ft 9 in Weight 181 lb 6 oz BMI 26.8 BP 116/80 Blood Pressure Location Lt brachial Position Sitting Pulse 84 Pulse Source Pulse Oximeter Pulse Oximetry (%) 98 Oxygen Delivery Method Room Air Intake Visit Reasons: dm Guillotine Trimmer Required: No Accompanied by: Self / Same As Patient Allergies Sbrdyjn-RGN-UfA Reductase Inhibitor (Swdqylx-Apk-Gtc Reductase Inhibitor) Allergy (Unknown, Verified 04/04/25 13:46) elevated liver enzymes Medication List - Last Reconciled 04/04/25 by Jennifer Teran MD alprazolam 2 mg PO BID PRN aripiprazole 20 mg PO BEDTIME PRN bisacodyl (Dulcolax (bisacodyl)) 20 mg (4 x 5 mg) PO ONCE 1 day blood sugar diagnostic (FreeStyle Lite Strips) 1 strip miscellaneous BID 30 days bupropion HCl XL 150 mg PO QAM cholecalciferol (vitamin D3) (Vitamin D3) 25 mcg PO DAILY cholestyramine (with sugar) 4 gram 4 grams PO DAILY 30 days evolocumab (Repatha SureClick) 140 mg subcut Q2W 30 days ezetimibe 10 mg PO DAILY 90 days fenofibrate micronized 67 mg PO DAILY lancets (FreeStyle Lancets) 28 gauge topical BID 30 days levetiracetam 500 mg PO BID lidocaine 5% 1 appl topical BEDTIME PRN 30 days metformin 500 mg PO BID methocarbamol 500 mg PO TID 30 days olanzapine 5 mg PO BEDTIME omega-3 acid ethyl esters 2 caps PO BID 90 days omeprazole 20 mg PO DAILY 90 days polyethylene glycol 3350 (Miralax) 17 grams PO DAILY 1 day triamcinolone acetonide 0.1% 1 appl topical DAILY 2 weeks Tobacco use date assessed: 04/04/25 Dental Screening Dental Screen Date: 04/04/25 Did you have a dental visit in the last 12 months?: No Did you have a dental problem in the last 6 months where you did not have access to dental care?: No Was dental information given to patient?: No HPI HPI Comments History of Present Illness Details The patient is a 50-year-old male presenting with management of hyperlipidemia, diabetes mellitus, and allergic rhinitis, as well as follow-up o n a recent tendon injury and discussion of colon cancer screening. The patient has a history of hyperlipidemia, which is currently managed with medication, including injections every two weeks. His LDL cholesterol is well- controlled at 32 mg/dL, attributed to the effectiveness of the current treatment regimen. The patient also has a history of diabetes mellitus, with a recent blood glucose level of 113 mg/dL. He expresses concern about potential infections due to his diabetic status, especially in relation to his recent tendon injury. The patient reports a recent tendon injury involving his fingers, which occurred when a door closed on his hand. Surgical intervention was required to repair the tendons, and the patient is currently recovering from this procedure. Additionally, the patient experiences allergic rhinitis, which is part of his ongoing medical management. He is also undergoing preventative care measures, including colon cancer screening, which involves a stool test. The patient has expressed difficulty with the preparation for the screening due to nausea. [facility] Medical History Diabetes mellitus type 2, controlled GERD (gastroesophageal reflux disease) Seizures Familial combined hyperlipidemia Essential hypertension Seizure disorder Low back pain Memory loss Anxiety Dyslipidemia Hypertriglyceridemia Hypovitaminosis D Surgical History H/O right wrist surgery Hx of arthroscopy Hx of hand surgery Family History Father CVD (cardiovascular disease) Hypertension Mother Diabetes Paternal Grandmother Cancer Paternal Uncle Throat cancer Family/Other FH: mental illness Social History Household Members: Spouse Household Members Other:: Spouse: Anyi Begum Housing: House Alcohol intake: current Alcohol intake frequency: holidays/special occasions only Alcohol type: beer Patient Tobacco Use Status: Current everyday Tobacco user Tobacco use type: Cigarette Cigarettes Per Day: 2 e-Cigarette/Vaping Use: Never Used Second Hand Smoke Exposure: No service: No Current occupational status: disabled Cognitive needs: No Hearing needs: No Vision needs: No Questionnaire PHQ-9 Over the last 2 weeks, how often have you been bothered by any of the following problems? 1. Little interest or pleasure in doing things: several days 2. Feeling down, depressed, or hopeless: several days 3. Trouble falling or staying asleep, or sleeping too much: several days 4. Feeling tired or having little energy: not at all 5. Poor appetite or overeating: not at all 6. Feeling bad about yourself - or that you are a failure or have let yourself or your family down: several days 7. Trouble concentrating on things, such as reading the newspaper or watching television: more than half the days 8. Moving or speaking so slowly that other people could have noticed. Or the opposite - being so fidgety or restless that you have been moving around a lot more than usual: not at all 9. Thoughts that you would be better off or of hurting yourself in some way: not at all Total score: 6 Depression Screening Interpretation: Positive Depression Screening Follow-up: Existing condition, In treatment, Community Mental Health Worker F/U and Follow- up Visit Requested Depression Screening Done: Yes 25953 - PHQ-9 Billing: Yes Source: Developed by Drs. Jacob Shaw, Jenn Walton, Mohsen Eldridge and colleagues, with an educational ila from [employer]. Thrive Questionnaire Date Thrive assessed: 11/21/24 I am a: Patient What is your living situation today?: I have a steady place to live Within the past 12 months, did the food you bought not last and you didn't have the money to get more?: Never true Within the past 12 months, did you worry whether your food would run out before you got money to buy more?: Never true Do you have trouble paying for medicines?: No Do you have trouble getting transportation to medical appointments?: No Do you have trouble paying your heating and electricity bill?: No Do you have trouble taking care of your child, family member or friend?: No Do you have trouble with day-to-day activities such as bathing, preparing meals, shopping, managing finances, etc.?: No Are you currently unemployed and looking for a job?: Yes Are you interested in more education?: No Please select the resources that you would like help with: None Currently or been in a relationship where the following occur: No concerns reported THRIVE Score: 0 AUDIT C Alcohol Use Questionnaire (AUDIT-C) 1. How often do you have a drink containing alcohol?: Never 3. How often do you have six or more drinks on one occasion?: Never Total Score: 0 Score Reviewed/Action Taken: No LOYD-7 AMB Questionnaire LOYD-7 Date LOYD - 7 assessed: 11/21/24 Feeling nervous, anxious, or on edge: 3 = Nearly every day Not being able to stop or control worryin = Nearly every day Worrying too much about different things: 3 = Nearly every day Trouble relaxin = Nearly every day Being so restless that it is hard to sit still: 3 = Nearly every day Becoming easily annoyed or irritable: 3 = Nearly every day Feeling afraid as if something awful might happen: 1 = Several days Total LOYD-7 score (0-4 normal; 5-9 mild; 10-14 moderate; 15-21 severe): 19 Source: Developed by Drs. Jacob Shaw, Jenn Walton, Mohsen Eldridge and colleagues, with an educational ila from [employer]. LOYD-7 Assessment Billing LOYD-7 Assessment Tool: LOYD-7 Assessment 01895 Review of Systems Const All systems reviewed & are unremarkable except as noted in HPI and below Card Denies chest pain at rest, Denies chest pain with activity, Denies edema, Denies irregular heart rhythm, Denies claudication, Denies dyspnea, Denies dyspnea on exertion, Denies orthopnea, Denies paroxysmal nocturnal dyspnea and Denies slow heart rate Resp Denies cough, Denies dyspnea and Denies dyspnea on exertion Musc Denies atrophy, Denies deformity and Denies limited range of motion Physical exam (Primary Care) Vital Signs: Last Vital Signs Pulse 84 04/04/25 13:34 BP 116/80 04/04/25 13:34 Pulse Ox 98 04/04/25 13:34 Oxygen Delivery Method Room Air 04/04/25 13:34 BMI result Body Mass Index 26.8 Tobacco/Smoking Status: Tobacco use Status Tobacco use date assessed 04/04/25 04/04/25 13:41 Patient Tobacco Use Status Current everyday Tobacco 04/04/25 13:41 Tobacco use type Cigarette 04/04/25 13:41 e-Cigarette/Vaping Use Never Used 04/04/25 13:41 PHQ-9: PHQ-9 Score PHQ-9: Total score 6 04/04/25 13:56 Depression Screening Interpretation: Positive Depression Screening Follow-up: Existing condition, In treatment, Community Mental Health Worker F/U and Follow- up Visit Requested Thrive Assessment: Date of Thrive Assessment Date Thrive assessed 11/21/24 04/04/25 13:41 Currently or been in a relationship where the following occur: No concerns reported Resp Effort & Inspection: normal respiratory effort Auscultation: clear to auscultation bilaterally Cardio Jugular venous distension: no JVD Rate: regular rate Rhythm: regular rhythm Heart sounds: S1 normal heart sound present and S2 normal heart sound present Extrem General: Yes full ROM Results AMB Hemoglobin A1c AMB Hemoglobin A1c 6.1 % Last Edit by KEVIN Sultana on 04/04/25 14 :13 Results Reviewed Results Reviewed: Laboratory Last Values Hgb A1c (Clinic) 6.1 % (4.0-6.0) H 04/04/25 13:53 Coding Level of Care Code Est Pt Level 4 (99688) Complex EM visit Add On G2211 Diagnoses Mild recurrent major depression F33.0 Essential hypertension I10 Familial combined hyperlipidemia E78.49 Diabetes mellitus type 2, controlled E11.9 Seizures R56.9 Additional Codes LOYD-7 Assessment Billing - LOYD-7 Assessment Tool: LOYD-7 Assessment 95195 ([id number]) PHQ-9 - 66099 - PHQ-9 Billing: Yes ([id number]) Time Spent (min) 24 Assessment & Plan Assessment & Plan (1) Mild recurrent major depression: Code(s): F33.0 - Major depressive disorder, recurrent, mild Category: Medical (2) Essential hypertension: Code(s): I10 - Essential (primary) hypertension Category: Medical (3) Familial combined hyperlipidemia: Code(s): E78.49 - Other hyperlipidemia Category: Medical (4) Diabetes mellitus type 2, controlled: Code(s): E11.9 - Type 2 diabetes mellitus without complications Category: Medical (5) Seizures: Code(s): R56.9 - Unspecified convulsions Category: Medical Plan Plan Patient was informed and verbally consented to the use of an ambient scribe for clinic note documentation during this visit. 1. Hyperlipidemia The patient's hyperlipidemia is managed with bi-weekly injections, which have effectively reduced his LDL cholesterol to 32 mg/dL. Continued adherence to this regimen is recommended to maintain lipid control. 2. Diabetes Mellitus The patient's diabetes mellitus is currently stable with a blood glucose level of 113 mg/dL. Monitoring for potential infections is advised due to his diabetic status, especially in light of his recent tendon injury. 3. Allergic Rhinitis Management of allergic rhinitis should continue as part of the patient's ongoing care. Symptomatic treatment and avoidance of known allergens are recommended. 4. Tendon Injury The patient is recovering from surgical repair of tendons in his fingers fol lowing an injury. Continued follow-up is necessary to monitor healing and function. 5. Colon Cancer Screening The patient is undergoing colon cancer screening with a stool test. He has expr essed difficulty with the preparation due to nausea, and alternative methods or support may be considered to facilitate completion of the screening. Orders: Orders Lipid Panel 4 Months E78.5 - Hyperlipidemia, unspecified Microalbumin, Random (w Creat) 4 Months R80.9 - Proteinuria, unspecified Comprehensive [place]. Panel Fast 4 Months I10 - Essential (primary) hypertension AMB Hemoglobin A1c Today Z13.9 - Encounter for screening, unspecified Referrals Cologuard Test Z12.11 - Encounter for screening for malignant neoplasm of colon, Z12.12 - Encounter for screening for malignant neoplasm of rectum Medications: New diclofenac sodium 50 mg PO BID PRN 20 tabs 0RF pain 10 days cetirizine (All Day Allergy (cetirizine)) 10 mg PO DAILY PRN 90 tabs 1RF allergy symptoms 90 days
== END 2025-04-04 14:05 | disposition home or self-care (01) ==
LOC: HO.HMCH 13:32
PROVIDERS: PCP Internal Medicine; Visit Provider Internal Medicine
DX: I10 Essential (primary) hypertension (principal); E11.69 Type 2 diabetes mellitus with other specified complication; R56.9 Unspecified convulsions; F33.0 Major depressive disorder, recurrent, mild; E78.49 Other hyperlipidemia

== ENCOUNTER → 2025-04-04 13:31 | Outpatient (BNVA) | payer OTHER, SELFPAY | PROVIDERS: PCP Internal Medicine; Visit Provider Internal Medicine | DX: E11.9 Type 2 diabetes mellitus without complications (principal); E78.5 Hyperlipidemia, unspecified; J30.9 Allergic rhinitis, unspecified; F33.0 Major depressive disorder, recurrent, mild; I10 Essential (primary) hypertension; E78.49 Other hyperlipidemia; R56.9 Unspecified convulsions; R80.9 Proteinuria, unspecified | CPT/HCPCS: 83036; 96127; 99212 ==

== ENCOUNTER 2025-04-17 14:47 | Outpatient (AMB) | payer OTHER, SELFPAY ==
--- NOTE | 2025-04-17 14:52 | MHC.PC.OV ---
Vital Signs 04/17/25 14:54 Height 5 ft 9 in Weight 176 lb 2 oz BMI 26.0 BP 130/70 Blood Pressure Location Rt brachial Position Sitting Pulse 81 Pulse Source Pulse Oximeter Temp 97.3 F Temp Source Temporal Artery Scan Pulse Oximetry (%) 97 Oxygen Delivery Method Room Air Intake Visit Reasons: Toe nail is black and in pain Intake Note: Patient is here to follow up on left ring nail is black with pain. License Examiner Required: Yes License Examiner Language: Product Safety Compliance Leader Name: Tomeka ([id number]) Information Interpreted: non-clinical & clinical Tombstone Setter: Present Accompanied by: Spouse Allergies Nspcmka-GKQ-IrY Reductase Inhibitor (Hfvvalx-Ueq-Gfv Reductase Inhibitor) Allergy (Unknown, Verified 04/17/25 14:53) elevated liver enzymes Medication List - Last Reconciled 04/17/25 by Bonita Harrington MD alprazolam 2 mg PO BID PRN aripiprazole 20 mg PO BEDTIME PRN bisacodyl (Dulcolax (bisacodyl)) 20 mg (4 x 5 mg) PO ONCE 1 day blood sugar diagnostic (FreeStyle Lite Strips) 1 strip miscellaneous BID 30 days bupropion HCl XL 150 mg PO QAM cetirizine (All Day Allergy (cetirizine)) 10 mg PO DAILY PRN 90 days cholecalciferol (vitamin D3) (Vitamin D3) 25 mcg PO DAILY cholestyramine (with sugar) 4 gram 4 grams PO DAILY 30 days diclofenac sodium 50 mg PO BID PRN 10 days evolocumab (Repatha SureClick) 140 mg subcut Q2W 30 days ezetimibe 10 mg PO DAILY 90 days fenofibrate micronized 67 mg PO DAILY lancets (FreeStyle Lancets) 28 gauge topical BID 30 days levetiracetam 500 mg PO BID lidocaine 5% 1 appl topical BEDTIME PRN 30 days metformin 500 mg PO BID methocarbamol 500 mg PO TID 30 days naproxen 375 mg PO BID PRN 30 days olanzapine 5 mg PO BEDTIME omega-3 acid ethyl esters 2 caps PO BID 90 days omeprazole 20 mg PO DAILY 90 days polyethylene glycol 3350 (Miralax) 17 grams PO DAILY 1 day triamcinolone acetonide 0.1% 1 appl topical DAILY 2 weeks Tobacco use date assessed: 04/17/25 Dental Screening Dental Screen Date: 04/04/25 HPI HPI Comments History of Present Illness Details The patient is a 50-year-old male presenting with a finger injury characterized by pain and discoloration. The injury occurred when the car door slammed on two of his fingers, resulting in abrasions and subsequent pain. The patient underwent tendon surgery on his fingers more than six years ago in [place]. He was able to recover with therapy and previously could close his hand fully, but now experiences difficulty in doing so. [facility], [facility] Medical History Diabetes mellitus type 2, controlled GERD (gastroesophageal reflux disease) Seizures Familial combined hyperlipidemia Essential hypertension Seizure disorder Low back pain Memory loss Anxiety Dyslipidemia Hypertriglyceridemia Hypovitaminosis D Surgical History H/O right wrist surgery Hx of arthroscopy Hx of hand surgery Family History Father CVD (cardiovascular disease) Hypertension Mother Diabetes Paternal Grandmother Cancer Paternal Uncle Throat cancer Family/Other FH: mental illness Social History Household Members: Spouse Household Members Other:: Spouse: Anyi Begum Housing: House Alcohol intake: current Alcohol intake frequency: holidays/special occasions only Alcohol type: beer Patient Tobacco Use Status: Current everyday Tobacco user Tobacco use type: Cigarette Cigarette Packs Per Day: 0.25 Cigarettes Per Day: 3 e-Cigarette/Vaping Use: Never Used Second Hand Smoke Exposure: Yes service: No Current occupational status: disabled Cognitive needs: No Hearing needs: No Vision needs: No Questionnaire Thrive Questionnaire Date Thrive assessed: 04/04/25 I am a: Patient What is your living situation today?: I have a steady place to live Within the past 12 months, did the food you bought not last and you didn't have the money to get more?: Never true Within the past 12 months, did you worry whether your food would run out before you got money to buy more?: Never true Do you have trouble paying for medicines?: No Do you have trouble getting transportation to medical appointments?: No Do you have trouble paying your heating and electricity bill?: No Do you have trouble taking care of your child, family member or friend?: No Do you have trouble with day-to-day activities such as bathing, preparing meals, shopping, managing finances, etc.?: No Are you currently unemployed and looking for a job?: Yes Are you interested in more education?: No Please select the resources that you would like help with: None Currently or been in a relationship where the following occur: No concerns reported THRIVE Score: 0 LOYD-7 AMB Questionnaire LOYD-7 Date LOYD - 7 assessed: 11/21/24 Source: Developed by Drs. Jacob Shaw, Jenn Walton, Mohsen Eldridge and colleagues, with an educational ila from [employer]. Review of Systems Const Details: Positives besides what was mentioned in HPI are in BOLD Constitutional: No Weight Change, No Fever, No Chills, No Night Sweats, No Fatigue, No Malaise ENT/Mouth: No Hearing Changes, No Ear Pain, No Nasal Congestion, No Sinus Pain, No Hoarseness, No sore throat, No Rhinorrhea, No Swallowing Difficulty Eyes: No Eye Pain, No Swelling, No Redness, No Foreign Body, No Discharge, No Vision Changes Cardiovascular: No Chest Pain, No SOB, No PND, No Dyspnea on Exertion, No Orthopnea, No Claudication, No Edema, No Palpitations Respiratory: No Cough, No Sputum, No Wheezing, No Smoke Exposure, No Dyspnea Gastrointestinal: No Nausea, No Vomiting, No Diarrhea, No Constipation, No Pain, No Heartburn, No Anorexia, No Dysphagia, No Hematochezia, No Melena, No Flatulence, No Jaundice Genitourinary: No Dysmenorrhea, No DUB, No Dyspareunia, No Dysuria, No Urinary Frequency, No Hematuria, No Urinary Incontinence, No Urgency, No Flank Pain, No Urinary Flow Changes, No Hesitancy Musculoskeletal: No Arthralgias, No Myalgias, No Joint Swelling, No Joint Stiffness, No Back Pain, No Neck Pain, No Injury History Skin: No Skin Lesions, No Pruritis, No Hair Changes, No Breast/Skin Changes, No Nipple Discharge Neuro: No Weakness, No Numbness, No Paresthesias, No Loss of Consciousness, No Syncope, No Dizziness, No Headache, No Coordination Changes, No Recent Falls Psych: No Anxiety/Panic, No Depression, No Insomnia, No Personality Changes, No Delusions, No Rumination, No SI/HI/AH/VH, No Social Issues, No Memory Changes, No Violence/Abuse Hx., No Eating Concerns Heme/Lymph: No Bruising, No Bleeding, No Transfusions History, No Lymphadenopathy Endocrine: No Polyuria, No Polydipsia, No Temperature Intolerance Physical exam (Primary Care) Vital Signs: Last Vital Signs Temp 97.3 F 04/17/25 14:54 Pulse 81 04/17/25 14:54 BP 130/70 04/17/25 14:54 Pulse Ox 97 04/17/25 14:54 Oxygen Delivery Method Room Air 04/17/25 14:54 BMI result Body Mass Index 26.0 Tobacco/Smoking Status: Tobacco use Status Tobacco use date assessed 04/17/25 04/17/25 15:01 Patient Tobacco Use Status Current everyday Tobacco 04/17/25 15:01 Tobacco use type Cigarette 04/17/25 15:01 e-Cigarette/Vaping Use Never Used 04/17/25 15:01 Thrive Assessment: Date of Thrive Assessment Date Thrive assessed 04/04/25 04/17/25 15:01 Currently or been in a relationship where the following occur: No concerns reported Const Other: Pertinent findings are in BOLD GENERAL APPEARANCE NAD, activity normal for age, well developed/ well nourished, no cyanosis, pallor, or diaphoresis. EYES lids/conjunctiva normal. EARS/NOSE/THROAT Mucous membranes moist, nares normal, lips/teeth normal uvula midline without oral pharyngeal erythema, exudate or swelling TMs normal bilaterally. No lymphangitis/lymphedema. HEAD/NECK normocephalic atraumatic, no facial trauma, neck is supple. RESPIRATORY respiratory effort normal, speaks in full sentences, no tripod position, no accessory muscle use. Lungs clear to auscultation without rhonchi, wheezes, rales CARDIAC Regular rate and rhythm, no edema. ABDOMINAL Soft, ND/NT. No evidence of fluid wave. No pulsatile masses on exam, rebound tenderness, Narayanan sign or pain over Mcburney's point. MUSCLES/EXTREMITIES No abnormal range of motion, no swelling. Black ring finger nail on right side. Could not close his left fist fuly due to pain. Tendernedd in ring finger tip. SKIN Warm, pink and dry. No rashes, dermatoses, petechiae or lesions. NEUROLOGICAL Speech is clear and appropriate. Normal level of consciousness. Gait and coordination are normal. 5/5 strength in all extremities. PSYCH Normal mood and affect. Judgement/competence is appropriate Coding Level of Care Code Est Pt Level 3 (06082) Diagnoses Hand injury S69.90XA Time Spent (min) 20 Assessment & Plan Assessment & Plan (1) Hand injury: Code(s): S69.90XA - Unspecified injury of unspecified wrist, hand and finger(s), initial encounter Category: Medical Plan: X ray of the hand. Hand surgery referral since the patient had history of hand surgery in the past and currently he is unable to fully close his fist. Naproxen for pain control. Plan I discussed with the patient the need for an x-ray to evaluate the current condition of his hand and the possibility of a referral to hand surgery for further assessment. Orders: Orders XR hand LT min 3V Today S69.90XA - Unspecified injury of unspecified wrist, hand and finger(s), initial encounter Referrals Hand Surgery Referral S69.90XA - Unspecified injury of unspecified wrist, hand and finger(s), initial encounter Medications: New naproxen 375 mg PO BID PRN 60 tabs 0RF pain 30 days
[2025-04-17 14:54] VITALS: BP 130/70; PULSE 81; TEMP 36.3; O2SAT 97; BMI 26.0
== END 2025-04-17 16:34 | disposition home or self-care (01) ==
LOC: HO.HMCH 14:48
PROVIDERS: PCP Internal Medicine; Visit Provider Internal Medicine
DX: S69.90XA Unspecified injury of unspecified wrist, hand and finger(s), initial encounter (principal)

== ENCOUNTER 2025-04-17 14:47 | Outpatient (REF) | payer OTHER, SELFPAY ==
--- NOTE | ~2025-04-17 | XR_ITS ---
EXAMINATION: XR HAND, LEFT CLINICAL INFORMATION: S69.90XA - Unspecified injury of unspecified wrist, hand and finger(s), ... COMPARISON: January 08, 2017 TECHNIQUE: PA, lateral, and oblique views of the left hand. FINDINGS: No acute cortical disruption or gross malalignment. No lytic or blastic lesions. There is preservation of the joint spaces. No metallic or radiopaque foreign body. No subcutaneous emphysema. XR/XR hand LT min 3V IMPRESSION: Normal x-ray, left hand. Electronically signed by: En Moser MD 04/17/2025 03:55 PM EDT
== END 2025-04-17 14:48 | disposition home or self-care (01) ==
LOC: HO.XRAY 14:47
PROVIDERS: PCP Internal Medicine; Visit Provider Internal Medicine
DX: S69.92XA Unspecified injury of left wrist, hand and finger(s), initial encounter (principal); Z79.84 Long term (current) use of oral hypoglycemic drugs; Z79.899 Other long term (current) drug therapy
CPT/HCPCS: 73130

== ENCOUNTER → 2025-04-17 15:43 | Outpatient (BNV) | payer OTHER, SELFPAY | PROVIDERS: PCP Internal Medicine; Visit Provider Radiology Diagnostic Radiology | DX: S69.92XA Unspecified injury of left wrist, hand and finger(s), initial encounter (principal) | CPT/HCPCS: 73130 ==

== ENCOUNTER 2025-05-07 14:41 | Outpatient (REF) | payer OTHER, SELFPAY | END 2025-05-07 14:42 | disposition home or self-care (01) | LOC: HO.HOSX 14:41 | DX: Z13.89 Encounter for screening for other disorder (principal) ==

== ENCOUNTER 2025-05-08 11:07 | Outpatient (REF) | payer OTHER, SELFPAY ==
--- NOTE | ~2025-05-08 | XR_ITS ---
EXAMINATION: XR HAND 3 OR MORE VIEWS LEFT HISTORY: M79.641 - Pain in left hand COMPARISON: Comparison is made with the prior examination dated 04/17/2025. FINDINGS: Three views of the left hand are submitted. Osseous mineralization is normal. Again seen is a tiny osseous density adjacent to the DIP joint of the 3rd finger, likely the result of old trauma. No acute fracture or dislocation is seen. The joint spaces are preserved. The soft tissues are unremarkable. XR/XR hand LT min 3V IMPRESSION: No evidence of acute fracture of the left hand. Electronically signed by: Jacob Partida MD 05/08/2025 12:40 PM EDT
== END 2025-05-08 11:08 | disposition home or self-care (01) ==
LOC: HO.HOSX 11:07
DX: S60.131D Contusion of right middle finger with damage to nail, subsequent encounter (principal); M79.641 Pain in right hand; W23.1XXD Caught, crushed, jammed, or pinched between stationary objects, subsequent encounter
CPT/HCPCS: 73130; 99202

== ENCOUNTER 2025-05-08 12:21 | Outpatient (AMB) | payer OTHER, SELFPAY ==
[2025-05-08 13:01] VITALS: BMI 25.4
--- NOTE | 2025-05-08 13:01 | A.OFFVIS_ITS ---
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 Intake Note: Gael is a 50 year old right hand dominant male who presents today as a new patient for evaluation of a Left Hand Injury, DOI: 04/04/25 . Per referring provider, a car door slammed on his left middle and ring fingers, resulting in abrasions and subsequent pain. He complains of pain at the DIP of the left ring finger. He has been taking Naproxen without relief. Patient has a history of tendon surgery on his left middle and ring fingers performed more than six years ago in [place] for which he was able to recover with therapy. Patient thinks this injury affected his previous injury as he was able to make a full fist but now is unable to do so. Patient has a history of Type 2 Diabetes Mellitus. Hogshead Hand Required: Yes Hogshead Hand Language: Ash Handler Services: Hogshead Hand Present Hogshead Hand Name: KEVIN Gabriel/NABOR Allergies Ighonfi-ODI-InK Reductase Inhibitor (Grmwpjm-Fox-Dmm Reductase Inhibitor) Allergy (Unknown, Verified 05/14/25 16:01) elevated liver enzymes HPI HPI IMPLEMENTATION ANALYST: LT hand injury, DOI ?: Details: Gael is a 50 year old right hand dominant male who presents today as a new patient for evaluation of a Left Hand Injury, DOI: 04/04/25 . Per referring provider, a car door slammed on his left middle and ring fingers, resulting in abrasions and subsequent pain. He complains of pain at the DIP of the left ring finger. He has been taking Naproxen without relief. Patient has a history of tendon surgery on his left middle and ring fingers performed more than six years ago in [place] for which he was able to recover with therapy. Patient thinks this injury affected his previous injury as he was able to make a full fist but now is unable to do so. Patient has a history of Type 2 Diabetes Mellitus. FOR[facility]LY [facility] Medical History (Updated 05/15/25 @ 18:37 by STEF Knapp) Diabetes mellitus type 2, controlled GERD (gastroesophageal reflux disease) Seizures Familial combined hyperlipidemia Essential hypertension Seizure disorder Low back pain Memory loss Anxiety Dyslipidemia Hypertriglyceridemia Hypovitaminosis D Surgical History (Updated 05/08/25 @ 13:06 by KEVIN Freitas) H/O right wrist surgery Hx of arthroscopy Hx of hand surgery Family History Father CVD (cardiovascular disease) Hypertension Mother Diabetes Paternal Grandmother Cancer Paternal Uncle Throat cancer Family/Other FH: mental illness Social History (Updated 05/08/25 @ 13:06 by KEVIN Freitas) Household Members: Spouse Household Members Other:: Spouse: Anyi Begum Housing: House Alcohol intake: former Patient Tobacco Use Status: Current everyday Tobacco user Tobacco use type: Cigarette Cigarette Packs Per Day: 0.25 Cigarettes Per Day: 3 e-Cigarette/Vaping Use: Never Used Second Hand Smoke Exposure: Yes service: No Current occupational status: disabled Current occupation: rt handed Cognitive needs: No Hearing needs: No Vision needs: No Review of Systems Const All systems reviewed & are unremarkable except as noted in HPI and below Physical Exam Vital Signs: BMI result Body Mass Index 25.4 Extrem Other: Patient is alert, oriented, and in no acute distress. Neuro: Normal sensation of the tips of all digits of the right hand at this time Vascular: Cap refill brisk Pain: Minimal tenderness to palpation noted right middle finger ROM: Patient is able to make a closed fist and extend all digits of the right hand fully Skin: No lacerations or abrasions. General: Subungual hematoma noted of the right middle finger No ecchymosis, erythema, or evidence of infection. Psych: Appears grossly normal Affect normal Attitude cooperative Results Reviewed Results Reviewed: X-rays obtained in the office today and independently reviewed by me, Raul Palafox PA-C, demonstrate no fracture or acute bony abnormality of the right hand. Assessment & Plan Assessment & Plan (1) Subungual hematoma of right middle finger: Code(s): S60.131A - Contusion of right middle finger with damage to nail, initial encounter Category: Medical Plan 1. Subungual hematoma right middle finger Patient is educated about this condition Patient is educated about the typical treatment course At this time, patient is informed that there is no acute intervention indicated, as subungual hematoma has likely scab at this point and nail trephination will not be effective Patient is educated there is no acute fracture noted, so there is no need for splinting or further intervention or treatment at this time Patient is educated that the nail will likely fall off eventually, but he should allow this to happen on its own, and not peel of the nail off Patient understands this and is amenable to this plan Follow-up as needed Coding Level of Care Code New Pt Level 3 (72690) Diagnoses Subungual hematoma of right middle finger S60.131A
== END 2025-05-08 13:31 | disposition home or self-care (01) ==
PROVIDERS: PCP Internal Medicine
DX: S60.131A Contusion of right middle finger with damage to nail, initial encounter (principal)
CPT/HCPCS: 99203

== ENCOUNTER → 2025-05-08 12:30 | Outpatient (BNV) | payer OTHER, SELFPAY | PROVIDERS: Visit Provider Radiology Diagnostic Radiology | DX: M79.642 Pain in left hand (principal) | CPT/HCPCS: 73130 ==

== ENCOUNTER 2025-05-09 06:01 | Outpatient (REF) | payer OTHER, SELFPAY ==
[2025-05-09 08:20] LABS: Alanine Aminotransferase 33 U/L (0-40); Albumin Level 4.3 g/dL (3.5-5.0); Alkaline Phosphatase 62 U/L (39-117); Anion Gap 10 (12-20); Aspartate Amino Transferase 34 U/L (5-37); Blood Urea Nitrogen 14 mg/dL (9-16); Calcium 8.8 mg/dL (8.4-10.2); Carbon Dioxide 25 mmol/L (22-29); Chloride 108 mmol/L (96-108); Cholesterol 109 mg/dL (<200); Estimated Glomerular Filt Rate > 60; HDL Cholesterol 41 mg/dL (>40); Potassium 4.0 mmol/L (3.3-5.1); Sodium 139 mmol/L (135-145); Total Protein 6.3 g/dL (6.5-8.0); Triglycerides 269 mg/dL (<150)
== END 2025-05-09 06:02 | disposition home or self-care (01) ==
LOC: HO.LAB 06:01
PROVIDERS: PCP Internal Medicine; Referring Provider Clinical Nurse Specialist Psychiatric/Mental Health; Visit Provider Internal Medicine
DX: Z00.00 Encounter for general adult medical examination without abnormal findings (principal); R80.9 Proteinuria, unspecified; E55.9 Vitamin D deficiency, unspecified; E78.5 Hyperlipidemia, unspecified
CPT/HCPCS: 36415; 80053; 80061; 82043; 82306; 82570

== ENCOUNTER 2025-05-14 15:33 | Outpatient (AMB) | payer OTHER, SELFPAY ==
--- NOTE | 2025-05-14 15:57 | A.OFFVIS_ITS ---
Intake Visit Reasons: Follow up Linesperson Services: Linesperson Offered & Declined (family to translate) Accompanied by: Family/Other Allergies Npwhqwi-KUN-UqH Reductase Inhibitor (Bowpkpb-Yyl-Fra Reductase Inhibitor) Allergy (Unknown, Verified 05/14/25 16:01) elevated liver enzymes Medication List - Last Reconciled 05/14/25 by Kailyn Robledo CNP alprazolam 2 mg PO BID PRN aripiprazole 20 mg PO BEDTIME PRN bisacodyl (Dulcolax (bisacodyl)) 20 mg (4 x 5 mg) PO ONCE 1 day blood sugar diagnostic (FreeStyle Lite Strips) 1 strip miscellaneous BID 30 days bupropion HCl XL 150 mg PO QAM cetirizine (All Day Allergy (cetirizine)) 10 mg PO DAILY PRN 90 days cholecalciferol (vitamin D3) (Vitamin D3) 25 mcg PO DAILY cholestyramine (with sugar) 4 gram 4 grams PO DAILY 30 days diclofenac sodium 50 mg PO BID PRN 10 days evolocumab (Repatha SureClick) 140 mg subcut Q2W 30 days ezetimibe 10 mg PO DAILY 90 days fenofibrate micronized 67 mg PO DAILY hydroxyzine pamoate 25 mg PO TID PRN lancets (FreeStyle Lancets) 28 gauge topical BID 30 days levetiracetam 500 mg PO BID 90 days metformin 500 mg PO BID methocarbamol 500 mg PO TID 30 days naproxen 375 mg PO BID PRN 30 days olanzapine 5 mg PO BEDTIME omega-3 acid ethyl esters 2 caps PO BID 90 days omeprazole 20 mg PO DAILY 90 days polyethylene glycol 3350 (Miralax) 17 grams PO DAILY 1 day triamcinolone acetonide 0.1% 1 appl topical DAILY 2 weeks HPI Comments Details: 50-year-old man with psychosis, depression, anxiety, and one episode clinically suggestive of a generalized convulsion disorder. He was doing okay. He was taking levetiracetam twice a day. No medication side effects. No seizures. Sleep was okay. Mood was okay. No falls. [facility] Medical History (Updated 05/14/25 @ 16:00 by Kailyn Robledo CNP) Diabetes mellitus type 2, controlled GERD (gastroesophageal reflux disease) Seizures Familial combined hyperlipidemia Essential hypertension Seizure disorder Low back pain Memory loss Anxiety Dyslipidemia Hypertriglyceridemia Hypovitaminosis D Surgical History (Updated 05/08/25 @ 13:06 by KEVIN Freitas) H/O right wrist surgery Hx of arthroscopy Hx of hand surgery Family History Father CVD (cardiovascular disease) Hypertension Mother Diabetes Paternal Grandmother Cancer Paternal Uncle Throat cancer Family/Other FH: mental illness Social History (Updated 05/08/25 @ 13:06 by KEVIN Freitas) Household Members: Spouse Household Members Other:: Spouse: Anyi Begum Housing: House Alcohol intake: former Patient Tobacco Use Status: Current everyday Tobacco user Tobacco use type: Cigarette Cigarette Packs Per Day: 0.25 Cigarettes Per Day: 3 e-Cigarette/Vaping Use: Never Used Second Hand Smoke Exposure: Yes service: No Current occupational status: disabled Current occupation: rt handed Cognitive needs: No Hearing needs: No Vision needs: No Review of Systems Const Denies chills, Denies daytime sleepiness, Denies difficulty sleeping, Denies fatigue, Denies fever(s), Denies frequent falls, Denies headache(s), Denies increased appetite, Denies poor appetite, Denies snoring, Denies weakness, Denies weight gain and Denies weight loss Eyes Denies loss of vision ENT Denies vertigo, Denies dizziness and Denies headache(s) Card Denies chest pain at rest, Denies chest pain with activity, Denies syncope, Severiano es leg edema and Denies palpitations Resp Denies snoring GI Denies constipation, Denies heartburn, Denies diarrhea and Denies nausea Denies urinary frequency, Denies urinary incontinence and Denies urinary urgency Musc Denies abnormal gait, Denies numbness and Denies tingling Skin/Breast Denies dry skin and Denies rash Neuro Denies abnormal gait, Denies vertigo, Denies dizziness, Denies syncope, Denies frequent falls, Denies headache(s), Denies lack of coordination, Denies loss of vision, Denies memory loss, Denies numbness, Denies restless legs, Denies seizure-like activity, Denies tingling, Denies paresthesias, Denies tremor(s) and Denies weakness Psych Denies anxiety, Denies depression, Denies auditory hallucinations, Denies memory loss, Denies visual hallucinations and Denies suicidal ideation Endo Denies fatigue and Denies palpitations Physical Exam Const Other: General Appearance:? normal, in no acute distress. Skin:? no rashes, no significant birthmarks. Heart:? S1, S2 normal, no murmurs. Lungs:? clear anteriorly and posteriorly. Extremities:? no edema. Psych:? alert, oriented, cognitive function intact, cooperative with exam. Neuro Other: Mental Status:?Alert and awake with normal language and flat affect. Cranial Nerves:?Pupils are equal, round and reactive to light. External occular muscles are intact. Visual lucas are full. Face is symmetrical. Facial sensations are normal. Tongue is midline. Palate elevates symmetrically. Shoulder shrugging is normal. Hearing to bedside conversation is normal. Sensory Exam:?....? Coordination:?No ataxia,?no titubation.? Gait Exam: Slow with decreased arm swing. Extrapyramidal System:?Decreased facial expressions and blinking. Mild generalized bradykinesia. Mild R hand cogwheeling. Pronator Drift:?Not present.? Involuntary Movements:?No tremors seen.? Speech:?Normal.? Results Reviewed Results Reviewed: [place] brain [place] [facility] [place]: [place] (reported) Routine EEG at office in Sep 2017: WNL. Assessment & Plan Assessment & Plan (1) Generalized seizure: Code(s): R56.9 - Unspecified convulsions Category: Medical Plan: Continue levetiracetam 500mg 1 tablet twice a day. Coding Level of Care Code Est Pt Level 4 (24572) Diagnoses Generalized seizure R56.9
== END 2025-05-14 16:16 | disposition home or self-care (01) ==
LOC: HO.HSM 15:34
PROVIDERS: PCP Internal Medicine; Visit Provider Registered Nurse
DX: R56.9 Unspecified convulsions (principal)
CPT/HCPCS: 99214

== ENCOUNTER → 2025-05-14 15:33 | Outpatient (BNVA) | payer OTHER, SELFPAY | PROVIDERS: PCP Internal Medicine; Visit Provider Registered Nurse | DX: G40.409 Other generalized epilepsy and epileptic syndromes, not intractable, without status epilepticus (principal); Z79.899 Other long term (current) drug therapy | CPT/HCPCS: 99212 ==